=== PATIENT | female | born 1980 | race Caucasian/White ===

== ENCOUNTER 2021-03-05 15:42 | Inpatient (IN) | payer BC ==
--- NOTE | 2021-03-05 16:49 | PCM.HP.2 ---
<Cameron Thorne Cyrus - Last Filed: 03/06/21 09:46> H&P History of Present Illness - General Date of Service: 03/05/21 Admit Problem/Dx: Admission Diagnosis/Problem Admission Diagnosis/Problem Sepsis Source of Information: Patient History Limitations: Reports: No Limitations - History of Present Illness Initial Comments - Free Text/Narative: Sarah Beth Friedman is a 40-year-old female presenting from the [place] ED for sepsis secondary to UTI. She initially presented to the ED with chills, diarrhea, vomiting, lower back and lower abdominal pain, malaise, and decrease in appetite. She reports that she typically goes to the ED when she "does not feel well" and has had prior episodes of UTI but non that have been this painful. The symptoms began on Thursday (03/03) and have gradually worsened until ED presentation. She describes the pain as constant, dull and pressure that is located in her lower back on both sides. This pain radiats to her buttocks when she moves or when touched. She also describes pain in her lower abdomen (suprapubic region) that started around the same time as the lower back pain. She tried cranberry pills for the UTI with little success. She rates the pain a 5-6/10 with the pain continuing worsen. She has no sick contacts, no recent travel, and no new foods. She has a past medical history of Diabetes Mellitus Type 2 and cardiovascular disease that has required multiple stent placements. ED Course in [place]: Last recorded vitals were temperature 36.0C, Pulse 97, Respirations 18, Blood pressure 117/66, and Pulse ox 96% on room air. Labs obtained showing WBC 28.72 (at 0112) and 4.76 (at 0604). Hgb 11.1. Platelets 463. UA with cloudy appearance, 100mg/dL protein, 500mg/dL Glucose, moderate occult blood, Nitrite negative, Leukocyte esterase small, 2+ Bacteria, 50-60 WBC/HPF. Sodium 134. Potassium 4.5. Chloride 98. Carbon Dioxide 21.8. BUN 27. Creatinine 1.5. GFR 38.1. Glucose 291. Lactic Acid 1.7. Albumin 2.8. SARS-CoV-2 RNA is negative. Chest radiograph was obtained which showed findings of an elarged cardiac silhouette and no focal infiltrate with clinical history of sepsis. EKG was obtained and showed findings of sinus tachycardia. She was started on Ceftriaxone 1gm IV onetime push and Ceftriaxone sodium/dextrose 1gm/Premix 50mLs at 100 mLs/hour. Vancomycn HCl 2gm/Premix 400mLs at 200mLs/hour . Enoxaparin 50mg/0.4 CA subcut. Heparin 5000 units/CA vial subcut. Morphine 2mg IV push. She was monitored regularly until transfer was available to [place]. Arrived to [place] around 1500 03/05/2021. Onset of Symptoms: Reports: Gradual Duration of Symptoms: Reports: Day(s): (2) Location: Reports: Abdomen (suprapubic), Back (paraspinal bilateral lumbar region) Quality: Reports: Ache, Pressure Severity: Moderate Improves with: Reports: None Worsens with: Reports: Movement Associated Symptoms: Reports: Diaphoresis, Fever/Chills, Headaches, Loss of Appetite, Malaise, Nausea/Vomiting, Weakness Bilateral Lower Back Pain Score (Numeric/FACES): 5 Suprapubic Pain Score (Numeric/FACES): 5 - Related Data Allergies/Adverse Reactions: Allergies Allergy/AdvReac Type Severity Reaction Status Date / Time Antihistamines - Alkylamine Allergy Hives Verified 03/05/21 17:34 aspirin Allergy Hives Verified 03/05/21 17:34 Home Medications: Home Meds Insulin Aspart [NovoLOG] See Protocol SQ WITHMEALSANDBED #3 pen MDD 50 units 02/13/19 [Rx] Levothyroxine 100 mcg PO ACBREAKFAST 08/18/20 [History] Sertraline HCl [Zoloft] 100 mg PO DAILY 08/18/20 [History] Chlorthalidone 25 mg PO DAILY 03/04/21 [History] Losartan Potassium 100 mg PO 1700 03/04/21 [History] Sertraline [Zoloft] 100 mg PO DAILY 03/04/21 [History] Spironolactone [Aldactone] 25 mg PO BID 03/04/21 [History] Ticagrelor [Brilinta] 90 mg PO BID 03/04/21 [History] amLODIPine [Norvasc] 5 mg PO DAILY 03/04/21 [History] Insulin Degludec [Tresiba] 46 unit SQ BID 03/05/21 [History] Rosuvastatin Calcium 20 mg PO DAILY 03/05/21 [History] Past Medical History HEENT History: Reports: None Cardiovascular History: Reports: High Cholesterol, Stents Respiratory History: Reports: None Gastrointestinal History: Reports: None Genitourinary History: Reports: Diabetic Nephropathy, UTI, Recurrent Other Genitourinary History: Yeast infections [employer] History: Reports: Other OB/BYN History: Genital warts Musculoskeletal History: Reports: None Neurological History: Reports: Neuropathy, Diabetic Psychiatric History: Reports: Anxiety, Depression, PTSD Endocrine/Metabolic History: Reports: Diabetes, Type II, Hypothyroidism Other Endocrine/Metabolic History: does not track sugars at home, takes 40 units Insulin Aspart at meal times, and 46 units Insulin Glargine BID Hematologic History: Reports: None Immunologic History: Reports: None Oncologic (Cancer) History: Reports: None Dermatologic History: Reports: None - Infectious Disease History Infectious Disease History: Reports: Chicken Pox - Past Surgical History Head Surgeries/Procedures: Reports: None HEENT Surgical History: Reports: Tonsillectomy Other HEENT Surgeries/Procedures: 2 throat surgeries Cardiovascular Surgical History: Reports: None Respiratory Surgical History: Reports: None GI Surgical History: Reports: None Female Surgical History: Reports: Section Endocrine Surgical History: Reports: None Neurological Surgical History: Reports: None Musculoskeletal Surgical History: Reports: None Dermatological Surgical History: Reports: None, Other (See Below) (I & D of back infection) Social & Family History - Family History Family Medical History: No Pertinent Family History Respiratory: Reports: COPD (Mother) Endocrine/Metabolic: Reports: Diabetes, type II (Father, Brother, and Paternal Grandfather) Oncologic: Reports: Breast (Mother), Uterine - Tobacco Use Tobacco Use Status *Q: Former Tobacco User Tobacco Use Within Last Twelve Months: No Used Tobacco, but Quit: Yes Month/Year Tobacco Last Used: April 2019 - Tobacco Core Measures Tobacco Use/Smoking Within Last 30 Days: No Smoking Frequency Within Last 30 Days: Reports: None Smokeless Tobacco Use in Last 30 Days: No - Caffeine Use Caffeine Use: Reports: Energy Drinks - Alcohol Use Alcohol Use History: Yes Alcohol Use Frequency: Rarely - Recreational Drug Use Recreational Drug Use: No - Sexual History Sexual History: Reports: Sexually Active - Living Situation & Occupation Occupation: Employed H&P Review of Systems - Review of Systems: Review Of Systems: See Below General: Reports: Fever, Chills, Malaise, Weakness, Fatigue, Diaphoresis, Decreased Appetite HEENT: Reports: Headaches Pulmonary: Reports: No Symptoms Cardiovascular: Reports: Lightheadedness Gastrointestinal: Reports: Abdominal Pain, Anorexia, Decreased Appetite, Nausea, Vomiting (3 episodes) Genitourinary: Reports: Pain (suprapubic), Flank Pain. Denies: Dysuria, Frequency, Burning, Urgency, Incontinence, Hematuria Musculoskeletal: Reports: No Symptoms Skin: Reports: Diaphoresis Psychiatric: Reports: No Symptoms Neurological: Reports: Headache Hematologic/Lymphatic: Reports: Easy Bleeding, Easy Bruising (patient attributes to blood thinner (ticagrelor)) Exam - Exam Exam: See Below - Exam General: Alert, Oriented, Cooperative, Mild Distress HEENT: EOMI, Hearing Intact, Mucosa Moist & Freer, Nares Patent, Pupils Equal, Pupils Reactive Neck: Supple, Trachea Midline, Full Range of Motion. No: Lymphadenopathy, JVD Lungs: Clear to Auscultation, Normal Respiratory Effort Cardiovascular: Regular Rate, Regular Rhythm, Normal S1, Normal S2 GI/Abdominal Exam: Normal Bowel Sounds, Soft, No Organomegaly, No Distention, No Abnormal Bruit (suprapubic pain on palpation), Tender Back Exam: Normal Inspection, CVA Tenderness (L), CVA Tenderness (R), Paraspinal Tenderness Extremities: Normal Inspection, Normal Range of Motion, Non-Tender, No Pedal Edema Peripheral Pulses: 2+: Dorsalis Pedis (L), Dorsalis Pedis (R) Skin: Warm, Dry, Intact, Cool (Bilateral feet) Neurological: Cranial Nerves Intact, Strength Equal Bilateral, Normal Speech, Normal Tone, Other (Decreased sensation of bilateral feet) Neuro Extensive - Mental Status: Alert, Oriented x3, Normal Mood/Affect, Normal Cognition, Memory Intact Neuro Extensive - Motor, Sensory, Reflexes: CN II-XII Intact Psychiatric: Alert, Normal Affect, Normal Mood - Patient Data Result Diagrams: 03/06/21 06:00 03/06/21 06:00 - Problem List (1) Sepsis secondary to UTI SNOMED Code(s): 463728432 ICD Code: A41.9 - SEPSIS, UNSPECIFIED ORGANISM; N39.0 - URINARY TRACT INFECTION, SITE NOT SPECIFIED Status: Acute Priority: High Current Visit: Yes (2) Type 2 diabetes mellitus SNOMED Code(s): 71759664 ICD Code: E11.9 - TYPE 2 DIABETES MELLITUS WITHOUT COMPLICATIONS Status: Chronic Priority: Medium Current Visit: Yes Qualifiers: Diabetes mellitus complication status: with neurologic complications Diabetes mellitus complication detail: with polyneuropathy (3) Depression SNOMED Code(s): 58627193 ICD Code: F32.A - DEPRESSION, UNSPECIFIED Status: Chronic Priority: Low Current Visit: No (4) Hypothyroidism SNOMED Code(s): 87937970 ICD Code: E03.9 - HYPOTHYROIDISM, UNSPECIFIED Status: Chronic Priority: Low Current Visit: No (5) Stented coronary artery Status: Chronic Priority: Low Current Visit: No (6) Diabetic nephropathy Status: Acute Priority: Medium Current Visit: Yes Qualifiers: Diabetes mellitus type: type 2 Qualified Code(s): E11.21 - Type 2 diabetes mellitus with diabetic nephropathy Orders Last 24hrs: Active Orders 24 hr Category Date Time Status Patient Status [ADT] Routine ADT 03/05/21 16:19 Active Blood Glucose Check, Bedside [RC] QIDACANDBED Care 03/05/21 16:30 Active Oxygen Therapy [RC] PRN Care 03/05/21 16:19 Active Up ad Cheri [RC] ASDIRECTED Care 03/05/21 16:19 Active VTE/DVT Education [RC] PER UNIT ROUTINE Care 03/05/21 16:19 Active Vital Signs [RC] Q4H Care 03/05/21 16:19 Active Consistent Carbohydrate Diet [DIET] Diet 03/05/21 Dinner Active Acetaminophen [TylenoL] Med 03/05/21 16:19 Active 650 mg PO Q4H PRN Acetaminophen/HYDROcodone [Chadron 325-5 MG] Med 03/05/21 16:19 Active 1 tab PO Q4H PRN Enoxaparin [Lovenox] Med 03/06/21 09:00 Active 40 mg SUBCUT DAILY Insulin Glarg,Human.Rec.Analog [LantUS] Med 03/05/21 21:00 Active 30 unit SUBCUT BID Insulin Lispro [HumaLOG] Med 03/05/21 17:00 Active See Protocol SUBCUT QIDACANDBED Ondansetron [Zofran] Med 03/05/21 16:19 Active 4 mg IV Q6H PRN Sodium Chloride 0.9% [Normal Saline] 1,000 ml Med 03/05/21 16:30 Active IV ASDIRECTED Temazepam [Restoril] Med 03/05/21 21:00 Active 15 mg PO BEDTIME PRN Resuscitation Status Routine Resus Stat 03/05/21 16:19 Ordered Medication Orders Acetaminophen (Acetaminophen 325 Mg Tab) 650 mg PO Q4H PRN PRN Reason: Pain (Mild 1-3)/fever Hydrocodone Bitart/Acetaminophen (Acetaminophen/Hydrocodone 325-5 Mg Tab) 1 tab PO Q4H PRN PRN Reason: Pain (moderate 4-6) Enoxaparin Sodium (Enoxaparin 40 Mg/0.4 Ml Syringe) 40 mg SUBCUT DAILY [facility] Sodium Chloride (Normal Saline) 1,000 mls @ 125 mls/hr IV ASDIRECTED [facility] Insulin Glargine (Insulin Glarg,Human.Rec.Analog 100 Unit/Ml) 30 unit SUBCUT BI D RODO Insulin Human Lispro (Insulin Lispro 100 Unit/Ml 10 Ml Vial) 0 unit SUBCUT QIDACANDBED RODO; Protocol Ondansetron HCl (Ondansetron 4 Mg/2 Ml Sdv) 4 mg IV Q6H PRN PRN Reason: Nausea/Vomiting Temazepam (Temazepam 15 Mg Cap) 15 mg PO BEDTIME PRN PRN Reason: Sleep Assessment/Plan Comment:: Assessment: -Sarah Beth Friedman is a 40 year-old female who was transferred to the hospital on 03/05/2021for continued signs and symptoms of sepsis secondary to UTI for the past 2 days. -She has had chills, fatigue, malaise, nausea/vomiting, decreased appetite, suprapubic pain, and bilateral CVA tenderness suggestive of UTI. - Urinalysis obtained showed: * cloudy appearance * glucose 500mg/dL * Nitrite negative * leukocyte esterase positive/small * WBC 50-60/hpf * 2+ bacteria * RBC 3-6, moderate occult blood -Labs obtained in ED showing: * WBC at 28.72 and 4.76 * Hgb 10.6 * Platelets 393 * Sodium 134 * Potassium 4.5 * Chloride 98 * Carbon Dioxide 21.8 * BUN 27 * Creatinine 1.5 * Albumin 2.8 * SARS-CoV-2 RNA Negative * Glucose 291 -Chest X-ray showed: * enlarged cardiac silhouette and no infiltrate from clinical sepsis -EKG showed: * sinus tachycardia - She has a past medical history of Diabetes Mellitus which would increase her risk for urinary tract infection, especially if blood glucose levels are not tracked as patient reports. With clinical features of UTI, urinary analysis with suggestive features of UTI, and past history of recurrent UTIs, it is highly likely that the patient is having a repeat UTI. With pain in lower back and diabetes, the UTI is complicated with possible pyelonephritis. Plan: Sepsis secondary to UTI: * Daily labs (CBC, CMP, CRP, lactic acid, UA) * Ceftriazone 2g [id number] * Enoxaparin 40mg/day * Ondansetron 4mg IV Q6H prn for nausea * NS at 125mL/hour * Acetaminophen 650mg p.o Q4H for mild (1-3) pain * [place] 325-5mg p.o Q4H for moderate (4-6) pain Diabetes Mellitus, Type 2: * Start sliding scale insulin with fingerstick blood sugars 4 times daily * Insulin Glargine 30 units BID * Adjust as needed. Stented Coronary Arteries: * No acute concerns based on physical exam and EKG * Continue * ticagrelor 90mg daily * amlodipine 5mg daily Diabetic Nephropathy: * Discontinue Losartan (home medication) * Daily monitoring of kidney function (CMP) Depression: * No acute concerns * Continue home sertraline Hypothyroidism: * No acute concerns * Obtain TSH level and continue levothyroxine as indicated <Leigha Mae III - Last Filed: 03/06/21 09:56> H&P History of Present Illness - General Admit Problem/Dx: Admission Diagnosis/Problem Admission Diagnosis/Problem Sepsis Exam - Vital Signs Vital Signs: Last Vital Signs Temp 101.6 F H 03/06/21 05:09 Pulse 113 H 03/06/21 05:12 Resp 12 03/06/21 05:12 BP 141/76 H 03/06/21 02:44 Pulse Ox 93 L 03/06/21 05:12 - Patient Data Lab Results Last 24 hrs: Laboratory Results - last 24 hr 03/05/21 03/05/21 03/06/21 Range/Units 17:36 20:58 05:47 WBC (3.98-10.04) K/mm3 RBC (3.98-5.22) M/mm3 Hgb (11.2-15.7) gm/dl Hct (34.1-44.9) % MCV (79.4-94.8) fl MCH (25.6-32.2) pg MCHC (32.2-35.5) g/dl RDW Std Deviation (36.4-46.3) fL Plt Count (182-369) K/mm3 MPV (9.4-12.3) fl Neut % (Auto) (34.0-71.1) % Lymph % (Auto) (19.3-51.7) % [place] % (Auto) (4.7-12.5) % Eos % (Auto) (0.7-5.8) Baso % (Auto) (0.1-1.2) % Neut # (Auto) (1.56-6.13) K/mm3 Lymph # (Auto) (1.18-3.74) K/mm3 [place] # (Auto) (0.24-0.36) K/mm3 Eos # (Auto) (0.04-0.36) K/mm3 Baso # (Auto) (0.01-0.08) K/mm3 Sodium (136-145) mEq/L Potassium (3.5-5.1) mEq/L Chloride (98-107) mEq/L Carbon Dioxide (21-32) mEq/L Anion Gap (5-15) BUN (7-18) mg/dL Creatinine (0.55-1.02) mg/dL Est Cr Clr Drug Dosing mL/min Estimated GFR (MDRD) (>60) mL/min BUN/Creatinine Ratio (14-18) Glucose (70-99) mg/dL POC Glucose 282 H 250 H 246 H (70-99) mg/dL Hemoglobin A1c ( - 5.6) % Calcium (8.5-10.1) mg/dL Phosphorus (2.6-4.7) mg/dL Magnesium (1.8-2.4) mg/dL Total Bilirubin (0.2-1.0) mg/dL AST (15-37) U/L ALT (14-59) U/L Alkaline Phosphatase (46-116) U/L C-Reactive Protein (<1.0) mg/dL Total Protein (6.4-8.2) g/dl Albumin (3.4-5.0) g/dl Globulin gm/dL Albumin/Globulin Ratio (1-2) 03/06/21 03/06/21 03/06/21 Range/Units 06:00 06:00 06:00 WBC 19.36 H (3.98-10.04) K/mm3 RBC 4.16 (3.98-5.22) M/mm3 Hgb 9.8 L (11.2-15.7) gm/dl Hct 31.6 L (34.1-44.9) % MCV 76.0 L (79.4-94.8) fl MCH 23.6 L (25.6-32.2) pg MCHC 31.0 L (32.2-35.5) g/dl RDW Std Deviation 52.6 H (36.4-46.3) fL Plt Count 353 (182-369) K/mm3 MPV 9.8 (9.4-12.3) fl Neut % (Auto) 84.7 H (34.0-71.1) % Lymph % (Auto) 8.3 L (19.3-51.7) % [place] % (Auto) 5.9 (4.7-12.5) % Eos % (Auto) 0.1 L (0.7-5.8) Baso % (Auto) 0.2 (0.1-1.2) % Neut # (Auto) 16.42 H (1.56-6.13) K/mm3 Lymph # (Auto) 1.61 (1.18-3.74) K/mm3 [place] # (Auto) 1.14 H (0.24-0.36) K/mm3 Eos # (Auto) 0.01 L (0.04-0.36) K/mm3 Baso # (Auto) 0.03 (0.01-0.08) K/mm3 Sodium 131 L (136-145) mEq/L Potassium 4.1 (3.5-5.1) mEq/L Chloride 100 (98-107) mEq/L Carbon Dioxide 20 L (21-32) mEq/L Anion Gap 15.1 H (5-15) BUN 24 H (7-18) mg/dL Creatinine 1.2 H (0.55-1.02) mg/dL Est Cr Clr Drug Dosing 48.30 mL/min Estimated GFR (MDRD) 49 (>60) mL/min BUN/Creatinine Ratio 20.0 H (14-18) Glucose 257 H (70-99) mg/dL POC Glucose (70-99) mg/dL Hemoglobin A1c 11.8 H ( - 5.6) % Calcium 7.3 L (8.5-10.1) mg/dL Phosphorus 1.5 L (2.6-4.7) mg/dL Magnesium 2.0 (1.8-2.4) mg/dL Total Bilirubin 0.2 (0.2-1.0) mg/dL AST 21 (15-37) U/L ALT 14 (14-59) U/L Alkaline Phosphatase 107 (46-116) U/L C-Reactive Protein 27.3 H* (<1.0) mg/dL Total Protein 6.6 (6.4-8.2) g/dl Albumin 2.0 L (3.4-5.0) g/dl Globulin 4.6 gm/dL Albumin/Globulin Ratio 0.4 L (1-2) 03/06/21 Range/Units 08:29 WBC (3.98-10.04) K/mm3 RBC (3.98-5.22) M/mm3 Hgb (11.2-15.7) gm/dl Hct (34.1-44.9) % MCV (79.4-94.8) fl MCH (25.6-32.2) pg MCHC (32.2-35.5) g/dl RDW Std Deviation (36.4-46.3) fL Plt Count (182-369) K/mm3 MPV (9.4-12.3) fl Neut % (Auto) (34.0-71.1) % Lymph % (Auto) (19.3-51.7) % [place] % (Auto) (4.7-12.5) % Eos % (Auto) (0.7-5.8) Baso % (Auto) (0.1-1.2) % Neut # (Auto) (1.56-6.13) K/mm3 Lymph # (Auto) (1.18-3.74) K/mm3 [place] # (Auto) (0.24-0.36) K/mm3 Eos # (Auto) (0.04-0.36) K/mm3 Baso # (Auto) (0.01-0.08) K/mm3 Sodium (136-145) mEq/L Potassium (3.5-5.1) mEq/L Chloride (98-107) mEq/L Carbon Dioxide (21-32) mEq/L Anion Gap (5-15) BUN (7-18) mg/dL Creatinine (0.55-1.02) mg/dL Est Cr Clr Drug Dosing mL/min Estimated GFR (MDRD) (>60) mL/min BUN/Creatinine Ratio (14-18) Glucose (70-99) mg/dL POC Glucose 216 H (70-99) mg/dL Hemoglobin A1c ( - 5.6) % Calcium (8.5-10.1) mg/dL Phosphorus (2.6-4.7) mg/dL Magnesium (1.8-2.4) mg/dL Total Bilirubin (0.2-1.0) mg/dL AST (15-37) U/L ALT (14-59) U/L Alkaline Phosphatase (46-116) U/L C-Reactive Protein (<1.0) mg/dL Total Protein (6.4-8.2) g/dl Albumin (3.4-5.0) g/dl Globulin gm/dL Albumin/Globulin Ratio (1-2) Result Diagrams: 03/06/21 06:00 03/06/21 06:00 Sepsis Event Note - Focused Exam Vital Signs: Vital Signs Temp Temp Pulse Resp BP Pulse Ox 03/06/21 05:12 113 H 12 93 L 03/06/21 05:09 101.6 F H 03/06/21 05:07 101.7 F H 03/06/21 02:44 141/76 H 03/06/21 02:42 101.5 F H 24 H 03/06/21 02:07 118 H 141/116 H 93 L 03/06/21 00:41 100.2 F 114 H 28 H 119/56 L 92 L Problem List Initiated/Reviewed/Updated: Yes Orders Last 24hrs: Active Orders 24 hr Category Date Time Status Patient Status [ADT] Routine ADT 03/05/21 16:19 Active Blood Glucose Check, Bedside [RC] QIDACANDBED Care 03/05/21 16:30 Active Oxygen Therapy [RC] PRN Care 03/05/21 16:19 Active Up ad Cheri [RC] 09,21 Care 03/05/21 16:19 Active VTE/DVT Education [RC] PER UNIT ROUTINE Care 03/05/21 16:19 Active Vaccine to be Administered/Admin Charge [RC] ASDIRECTED Care 03/05/21 17:18 Active Vital Signs [RC] Q4HR Care 03/05/21 16:19 Active Consistent Carbohydrate Diet [DIET] Diet 03/05/21 Dinner Active Shoulder Comp Lt [CR] Routine Exams 03/06/21 09:11 Ordered PROCALCITONIN [REF] Routine Lab 03/06/21 06:00 Received Acetaminophen [TylenoL] Med 03/05/21 16:19 Active 650 mg PO Q4H PRN Acetaminophen/HYDROcodone [Chadron 325-5 MG] Med 03/05/21 16:19 Active 1 tab PO Q4H PRN Enoxaparin [Lovenox] Med 03/06/21 09:00 Active 40 mg SUBCUT DAILY Insulin Glarg,Human.Rec.Analog [LantUS] Med 03/05/21 21:00 Active 30 unit SUBCUT BID Insulin Lispro [HumaLOG] Med 03/05/21 17:00 Active See Protocol SUBCUT QIDACANDBED Ondansetron [Zofran] Med 03/05/21 16:19 Active 4 mg IV Q6H PRN Sodium Chloride 0.9% [Normal Saline] 1,000 ml Med 03/05/21 16:30 Active IV ASDIRECTED Temazepam [Restoril] Med 03/05/21 21:00 Active 15 mg PO BEDTIME PRN cefTRIAXone [Rocephin] 2 gm Med 03/05/21 21:00 Active Sodium Chloride 0.9% [Normal Saline] 100 ml IV Q24H Resuscitation Status Routine Resus Stat 03/05/21 16:19 Ordered Medication Orders Acetaminophen (Acetaminophen 325 Mg Tab) 650 mg PO Q4H PRN PRN Reason: Pain (Mild 1-3)/fever Last Admin: 03/06/21 05:09 Dose: 650 mg Documented by: [email or web address] Admin: 03/05/21 21:17 Dose: 650 mg Documented by: [id number] Hydrocodone Bitart/Acetaminophen (Acetaminophen/Hydrocodone 325-5 Mg Tab) 1 tab PO Q4H PRN PRN Reason: Pain (moderate 4-6) Last Admin: 03/06/21 08:38 Dose: 1 tab Documented by: Admin: 03/05/21 17:57 Dose: 1 tab Documented by: HUMPHREY Enoxaparin Sodium (Enoxaparin 40 Mg/0.4 Ml Syringe) 40 mg SUBCUT DAILY [facility] Last Admin: 03/06/21 08:33 Dose: 40 mg Documented by: DEMI Sodium Chloride (Normal Saline) 1,000 mls @ 125 mls/hr IV ASDIRECTED [facility] Last Admin: 03/06/21 02:38 Dose: 125 mls/hr Documented by: Infusion: 03/06/21 01:58 Dose: 125 mls/hr Documented by: Admin: 03/05/21 17:58 Dose: 125 mls/hr Documented by: HUMPHREY Ceftriaxone Sodium 2 gm/ (Sodium Chloride) 100 mls @ 200 mls/hr IV Q24H [facility] Last Admin: 03/05/21 21:13 Dose: 200 mls/hr Documented by: ERIK Insulin Glargine (Insulin Glarg,Human.Rec.Analog 100 Unit/Ml) 30 unit SUBCUT BID [facility] Last Admin: 03/06/21 08:33 Dose: 30 units Documented by: Admin: 03/05/21 21:20 Dose: 30 units Documented by: ERIK Insulin Human Lispro (Insulin Lispro 100 Unit/Ml 10 Ml Vial) 0 unit SUBCUT QIDACANDBED [facility]; Protocol Last Admin: 03/06/21 08:32 Dose: 6 units Documented by: Admin: 03/05/21 21:20 Dose: 9 units Documented by: Admin: 03/05/21 18:23 Dose: 9 units Documented by: HUMPHREY Ondansetron HCl (Ondansetron 4 Mg/2 Ml Sdv) 4 mg IV Q6H PRN PRN Reason: Nausea/Vomiting Last Admin: 03/06/21 02:36 Dose: 4 mg Documented by: ERIK Temazepam (Temazepam 15 Mg Cap) 15 mg PO BEDTIME PRN PRN Reason: Sleep Assessment/Plan Comment:: Patient was seen, examined, and evaluated personally and I agree with the above findings, assessment, and plan. - Mortality Measure Prognosis:: Good
[2021-03-05] MEDS ORDERED: FLU Vacc QS2021-22 36MOS UP/PF 60 MCG/0.5 ML Syringe IM ONE (17:45)
[2021-03-05] MEDS: Acetaminophen/HYDROcodone 325-5 MG Tab PO PRN (17:57)
[2021-03-05] MEDS: Sodium Chloride 0.9% 1,000 ML IV SCH (17:58)
[2021-03-05] MEDS: Insulin Lispro 100 UNIT/ML 10 ML Vial SUBCUT SCH ×2 (18:23→21:20)
[2021-03-05] MEDS ORDERED: Temazepam 15 MG Cap PO PRN (21:00)
[2021-03-05] MEDS: cefTRIAXone 2 GM in Sodium Chloride 0.9% 100 ML IV SCH (21:13)
[2021-03-05] MEDS: Acetaminophen 325 MG Tab PO PRN (21:17)
[2021-03-05] MEDS: Insulin Glarg,Human.Rec.Analog 100 Unit/ML SUBCUT SCH (21:20)
[2021-03-06] MEDS: Ondansetron 4 MG/2 ML SDV IV PRN ×2 (02:36→16:09)
[2021-03-06] MEDS: Sodium Chloride 0.9% 1,000 ML IV SCH ×3 (02:38→18:14)
[2021-03-06] MEDS: Acetaminophen 325 MG Tab PO PRN ×2 (05:09→15:55)
[2021-03-06 07:41] LABS: HEMOGLOBIN A1C 11.8 %
[2021-03-06] MEDS: Insulin Lispro 100 UNIT/ML 10 ML Vial SUBCUT SCH ×4 (08:32→22:18)
[2021-03-06] MEDS: Enoxaparin 40 MG/0.4 ML Syringe SUBCUT SCH (08:33)
[2021-03-06] MEDS: Insulin Glarg,Human.Rec.Analog 100 Unit/ML SUBCUT SCH ×2 (08:33→20:30)
[2021-03-06] MEDS: Acetaminophen/HYDROcodone 325-5 MG Tab PO PRN ×3 (08:38→22:19)
[2021-03-06] MEDS: Ticagrelor 90 MG Tab PO SCH ×2 (10:27→20:30)
[2021-03-06] MEDS: amLODIPine 5 MG Tab PO SCH (10:27)
--- NOTE | 2021-03-06 10:27 | CR ---
Left shoulder: 3 views of the left shoulder were obtained. Comparison: No prior shoulder study is available. Small fracture is identified involving the greater tuberosity. This is displaced by about 3.5 mm. Slight calcification appears to be present within the distal rotator cuff presumably due to chronic calcific tendinitis. Acromioclavicular joint is normal. No additional abnormality is appreciated. Impression: 1. Greater tuberosity fracture showing approximately 3.5 mm of displacement. 2. Probable mild chronic calcific tendinitis. 3. No additional abnormality is seen. Diagnostic code #3
--- NOTE | 2021-03-06 13:12 | PCM.PN ---
<Cameron Thorne - Last Filed: 03/06/21 14:31> - General Info Date of Service: 03/06/21 Admission Dx/Problem (Free Text): Admission Diagnosis/Problem Admission Diagnosis/Problem Sepsis Subjective Update: Acute event occurred overnight. Patient was up ambulating and fell. Patient reports severe pain in her left shoulder at an 7/10. She attributes the fall to "not being able to feel her feet" and "my neuropathy." She denies any lightheade dness, dizziness, or loss of consciousness. Event occurred approximately at 0530 03/06/2021. She is currently icing her shoulder for pain and swelling. She reports that besides the shoulder pain, her suprapubic pain has improved. She continues to have bilateral lower back pain but reports that the pain is less severe than yesterday. Patient reports 1 episode of vomiting and continued nausea, but decreased intensity compared to pre-hospitalization. She has been experiencing decreased appetite. She reports no other concerns or complaints. She is tolerating medication plan well. - Review of Systems General: Reports: Fatigue, Malaise. Denies: Appetite (decreased) HEENT: Reports: No Symptoms Pulmonary: Reports: No Symptoms Cardiovascular: Reports: No Symptoms Gastrointestinal: Reports: Abdominal Pain (suprapubic), Decreased Appetite, Nausea, Vomiting (1 episode) Genitourinary: Denies: Dysuria, Frequency, Burning, Pain, Urgency Musculoskeletal: Reports: Back Pain (bilateral lower lumbar region) Skin: Reports: No Symptoms Neurological: Reports: Numbness (bilateral feet and ankles) Psychiatric: Reports: No Symptoms - Patient Data Vitals - Most Recent: Last Vital Signs Temp 98.1 F 03/06/21 11:23 Pulse 96 03/06/21 11:23 Resp 24 H 03/06/21 11:23 BP 120/54 L 03/06/21 11:23 Pulse Ox 94 L 03/06/21 11:23 Weight - Most Recent: 263 lb 9.6 oz I&O - Last 24 Hours: Intake & Output 03/05/21 03/06/21 03/06/21 22:59 06:59 14:59 Intake Total 1280 1535 240 Output Total 225 Balance 1280 1310 240 Lab Results Last 24 Hours: Laboratory Results - last 24 hr 10/12/21 10/12/21 10/13/21 Range/Units 17:36 20:58 05:47 WBC (3.98-10.04) K/mm3 RBC (3.98-5.22) M/mm3 Hgb (11.2-15.7) gm/dl Hct (34.1-44.9) % MCV (79.4-94.8) fl MCH (25.6-32.2) pg MCHC (32.2-35.5) g/dl RDW Std Deviation (36.4-46.3) fL Plt Count (182-369) K/mm3 MPV (9.4-12.3) fl Neut % (Auto) (34.0-71.1) % Lymph % (Auto) (19.3-51.7) % [place] % (Auto) (4.7-12.5) % Eos % (Auto) (0.7-5.8) Baso % (Auto) (0.1-1.2) % Neut # (Auto) (1.56-6.13) K/mm3 Lymph # (Auto) (1.18-3.74) K/mm3 [place] # (Auto) (0.24-0.36) K/mm3 Eos # (Auto) (0.04-0.36) K/mm3 Baso # (Auto) (0.01-0.08) K/mm3 Sodium (136-145) mEq/L Potassium (3.5-5.1) mEq/L Chloride (98-107) mEq/L Carbon Dioxide (21-32) mEq/L Anion Gap (5-15) BUN (7-18) mg/dL Creatinine (0.55-1.02) mg/dL Est Cr Clr Drug Dosing mL/min Estimated GFR (MDRD) (>60) mL/min BUN/Creatinine Ratio (14-18) Glucose (70-99) mg/dL POC Glucose 282 H 250 H 246 H (70-99) mg/dL Hemoglobin A1c ( - 5.6) % Calcium (8.5-10.1) mg/dL Phosphorus (2.6-4.7) mg/dL Magnesium (1.8-2.4) mg/dL Total Bilirubin (0.2-1.0) mg/dL AST (15-37) U/L ALT (14-59) U/L Alkaline Phosphatase (46-116) U/L C-Reactive Protein (<1.0) mg/dL Total Protein (6.4-8.2) g/dl Albumin (3.4-5.0) g/dl Globulin gm/dL Albumin/Globulin Ratio (1-2) Procalcitonin ng/mL 03/06/21 03/06/21 03/06/21 Range/Units 06:00 06:00 06:00 WBC 19.36 H (3.98-10.04) K/mm3 RBC 4.16 (3.98-5.22) M/mm3 Hgb 9.8 L (11.2-15.7) gm/dl Hct 31.6 L (34.1-44.9) % MCV 76.0 L (79.4-94.8) fl MCH 23.6 L (25.6-32.2) pg MCHC 31.0 L (32.2-35.5) g/dl RDW Std Deviation 52.6 H (36.4-46.3) fL Plt Count 353 (182-369) K/mm3 MPV 9.8 (9.4-12.3) fl Neut % (Auto) 84.7 H (34.0-71.1) % Lymph % (Auto) 8.3 L (19.3-51.7) % [place] % (Auto) 5.9 (4.7-12.5) % Eos % (Auto) 0.1 L (0.7-5.8) Baso % (Auto) 0.2 (0.1-1.2) % Neut # (Auto) 16.42 H (1.56-6.13) K/mm3 Lymph # (Auto) 1.61 (1.18-3.74) K/mm3 [place] # (Auto) 1.14 H (0.24-0.36) K/mm3 Eos # (Auto) 0.01 L (0.04-0.36) K/mm3 Baso # (Auto) 0.03 (0.01-0.08) K/mm3 Sodium 131 L (136-145) mEq/L Potassium 4.1 (3.5-5.1) mEq/L Chloride 100 (98-107) mEq/L Carbon Dioxide 20 L (21-32) mEq/L Anion Gap 15.1 H (5-15) BUN 24 H (7-18) mg/dL Creatinine 1.2 H (0.55-1.02) mg/dL Est Cr Clr Drug Dosing 48.30 mL/min Estimated GFR (MDRD) 49 (>60) mL/min BUN/Creatinine Ratio 20.0 H (14-18) Glucose 257 H (70-99) mg/dL POC Glucose (70-99) mg/dL Hemoglobin A1c ( - 5.6) % Calcium 7.3 L (8.5-10.1) mg/dL Phosphorus 1.5 L (2.6-4.7) mg/dL Magnesium 2.0 (1.8-2.4) mg/dL Total Bilirubin 0.2 (0.2-1.0) mg/dL AST 21 (15-37) U/L ALT 14 (14-59) U/L Alkaline Phosphatase 107 (46-116) U/L C-Reactive Protein 27.3 H* (<1.0) mg/dL Total Protein 6.6 (6.4-8.2) g/dl Albumin 2.0 L (3.4-5.0) g/dl Globulin 4.6 gm/dL Albumin/Globulin Ratio 0.4 L (1-2) Procalcitonin 39.93 H ng/mL 03/06/21 03/06/21 03/06/21 Range/Units 06:00 08:29 10:32 WBC (3.98-10.04) K/mm3 RBC (3.98-5.22) M/mm3 Hgb (11.2-15.7) gm/dl Hct (34.1-44.9) % MCV (79.4-94.8) fl MCH (25.6-32.2) pg MCHC (32.2-35.5) g/dl RDW Std Deviation (36.4-46.3) fL Plt Count (182-369) K/mm3 MPV (9.4-12.3) fl Neut % (Auto) (34.0-71.1) % Lymph % (Auto) (19.3-51.7) % [place] % (Auto) (4.7-12.5) % Eos % (Auto) (0.7-5.8) Baso % (Auto) (0.1-1.2) % Neut # (Auto) (1.56-6.13) K/mm3 Lymph # (Auto) (1.18-3.74) K/mm3 [place] # (Auto) (0.24-0.36) K/mm3 Eos # (Auto) (0.04-0.36) K/mm3 Baso # (Auto) (0.01-0.08) K/mm3 Sodium (136-145) mEq/L Potassium (3.5-5.1) mEq/L Chloride (98-107) mEq/L Carbon Dioxide (21-32) mEq/L Anion Gap (5-15) BUN (7-18) mg/dL Creatinine (0.55-1.02) mg/dL Est Cr Clr Drug Dosing mL/min Estimated GFR (MDRD) (>60) mL/min BUN/Creatinine Ratio (14-18) Glucose (70-99) mg/dL POC Glucose 216 H 268 H (70-99) mg/dL Hemoglobin A1c 11.8 H ( - 5.6) % Calcium (8.5-10.1) mg/dL Phosphorus (2.6-4.7) mg/dL Magnesium (1.8-2.4) mg/dL Total Bilirubin (0.2-1.0) mg/dL AST (15-37) U/L ALT (14-59) U/L Alkaline Phosphatase (46-116) U/L C-Reactive Protein (<1.0) mg/dL Total Protein (6.4-8.2) g/dl Albumin (3.4-5.0) g/dl Globulin gm/dL Albumin/Globulin Ratio (1-2) Procalcitonin ng/mL Med Orders - Current: Current Medications Acetaminophen (Acetaminophen 325 Mg Tab) 650 mg PO Q4H PRN PRN Reason: Pain (Mild 1-3)/fever Last Admin: 03/06/21 05:09 Dose: 650 mg Documented by: Hydrocodone Bitart/Acetaminophen (Acetaminophen/Hydrocodone 325-5 Mg Tab) 1 tab PO Q4H PRN PRN Reason: Pain (moderate 4-6) Last Admin: 03/06/21 08:38 Dose: 1 tab Documented by: Amlodipine Besylate (Amlodipine 5 Mg Tab) 5 mg PO DAILY [facility] Last Admin: 03/06/21 10:27 Dose: 5 mg Documented by: Enoxaparin Sodium (Enoxaparin 40 Mg/0.4 Ml Syringe) 40 mg SUBCUT DAILY [facility] Last Admin: 03/06/21 08:33 Dose: 40 mg Documented by: Sodium Chloride (Normal Saline) 1,000 mls @ 125 mls/hr IV ASDIRECTED [facility] Last Admin: 03/06/21 10:29 Dose: 125 mls/hr Documented by: Ceftriaxone Sodium 2 gm/ (Sodium Chloride) 100 mls @ 200 mls/hr IV Q24H [facility] Last Admin: 03/05/21 21:13 Dose: 200 mls/hr Documented by: Insulin Glargine (Insulin Glarg,Human.Rec.Analog 100 Unit/Ml) 30 unit SUBCUT BID [facility] Last Admin: 03/06/21 08:33 Dose: 30 units Documented by: Insulin Human Lispro (Insulin Lispro 100 Unit/Ml 10 Ml Vial) 0 unit SUBCUT QIDACANDBED [facility]; Protocol Last Admin: 03/06/21 11:47 Dose: 9 units Documented by: Levothyroxine Sodium (Levothyroxine 100 Mcg Tab) 100 mcg PO ACBREAKFAST [facility] Ondansetron HCl (Ondansetron 4 Mg/2 Ml Sdv) 4 mg IV Q6H PRN PRN Reason: Nausea/Vomiting Last Admin: 03/06/21 02:36 Dose: 4 mg Documented by: Rosuvastatin Calcium (Rosuvastatin 10 Mg Tab) 20 mg PO DAILY [facility] Sertraline HCl (Sertraline 50 Mg Tab) 100 mg PO DAILY [facility] Temazepam (Temazepam 15 Mg Cap) 15 mg PO BEDTIME PRN PRN Reason: Sleep Ticagrelor (Ticagrelor 90 Mg Tab) 90 mg PO BID [facility] Last Admin: 03/06/21 10:27 Dose: 90 mg Documented by: Discontinued Medications Influenza Virus Vaccine (Pharmacy To Dose - Influenza Vaccine) 1 each IM ONETIME ONE Stop: 03/05/21 17:19 Influenza Virus Vaccine (Flu Vacc [id number] 36mos Up/Pf 60 Mcg/0.5 Ml Syringe) 60 mcg IM .ONCE ONE Stop: 03/05/21 17:46 Last Admin: 03/05/21 22:30 Dose: Not Given Documented by: - Exam General: Alert, Oriented, Cooperative, Mild Distress Neck: Supple Lungs: Clear to Auscultation, Normal Respiratory Effort Cardiovascular: Regular Rhythm, No Murmurs, Tachycardia (~90-110) GI/Abdominal Exam: Normal Bowel Sounds, Soft, No Organomegaly, No Distention, No Abnormal Bruit, No Mass, Tender (to deep palpation in suprabupic region) Back Exam: Normal Inspection, CVA Tenderness (L), CVA Tenderness (R), Decreased Range of Motion (due to pain) Extremities: Normal Inspection, Normal Range of Motion, Non-Tender, No Pedal Edema, Normal Capillary Refill Skin: Warm, Dry, Intact, Cool (bilateral feet) Neurological: No New Focal Deficit Psy/Mental Status: Alert, Normal Affect, Normal Mood - Patient Data Lab Results Last 24 hrs: Laboratory Results - last 24 hr 03/05/21 03/05/21 03/06/21 Range/Units 17:36 20:58 05:47 WBC (3.98-10.04) K/mm3 RBC (3.98-5.22) M/mm3 Hgb (11.2-15.7) gm/dl Hct (34.1-44.9) % MCV (79.4-94.8) fl MCH (25.6-32.2) pg MCHC (32.2-35.5) g/dl RDW Std Deviation (36.4-46.3) fL Plt Count (182-369) K/mm3 MPV (9.4-12.3) fl Neut % (Auto) (34.0-71.1) % Lymph % (Auto) (19.3-51.7) % [place] % (Auto) (4.7-12.5) % Eos % (Auto) (0.7-5.8) Baso % (Auto) (0.1-1.2) % Neut # (Auto) (1.56-6.13) K/mm3 Lymph # (Auto) (1.18-3.74) K/mm3 [place] # (Auto) (0.24-0.36) K/mm3 Eos # (Auto) (0.04-0.36) K/mm3 Baso # (Auto) (0.01-0.08) K/mm3 Sodium (136-145) mEq/L Potassium (3.5-5.1) mEq/L Chloride (98-107) mEq/L Carbon Dioxide (21-32) mEq/L Anion Gap (5-15) BUN (7-18) mg/dL Creatinine (0.55-1.02) mg/dL Est Cr Clr Drug Dosing mL/min Estimated GFR (MDRD) (>60) mL/min BUN/Creatinine Ratio (14-18) Glucose (70-99) mg/dL POC Glucose 282 H 250 H 246 H (70-99) mg/dL Hemoglobin A1c ( - 5.6) % Calcium (8.5-10.1) mg/dL Phosphorus (2.6-4.7) mg/dL Magnesium (1.8-2.4) mg/dL Total Bilirubin (0.2-1.0) mg/dL AST (15-37) U/L ALT (14-59) U/L Alkaline Phosphatase (46-116) U/L C-Reactive Protein (<1.0) mg/dL Total Protein (6.4-8.2) g/dl Albumin (3.4-5.0) g/dl Globulin gm/dL Albumin/Globulin Ratio (1-2) Procalcitonin ng/mL 03/06/21 03/06/21 03/06/21 Range/Units 06:00 06:00 06:00 WBC 19.36 H (3.98-10.04) K/mm3 RBC 4.16 (3.98-5.22) M/mm3 Hgb 9.8 L (11.2-15.7) gm/dl Hct 31.6 L (34.1-44.9) % MCV 76.0 L (79.4-94.8) fl MCH 23.6 L (25.6-32.2) pg MCHC 31.0 L (32.2-35.5) g/dl RDW Std Deviation 52.6 H (36.4-46.3) fL Plt Count 353 (182-369) K/mm3 MPV 9.8 (9.4-12.3) fl Neut % (Auto) 84.7 H (34.0-71.1) % Lymph % (Auto) 8.3 L (19.3-51.7) % [place] % (Auto) 5.9 (4.7-12.5) % Eos % (Auto) 0.1 L (0.7-5.8) Baso % (Auto) 0.2 (0.1-1.2) % Neut # (Auto) 16.42 H (1.56-6.13) K/mm3 Lymph # (Auto) 1.61 (1.18-3.74) K/mm3 [place] # (Auto) 1.14 H (0.24-0.36) K/mm3 Eos # (Auto) 0.01 L (0.04-0.36) K/mm3 Baso # (Auto) 0.03 (0.01-0.08) K/mm3 Sodium 131 L (136-145) mEq/L Potassium 4.1 (3.5-5.1) mEq/L Chloride 100 (98-107) mEq/L Carbon Dioxide 20 L (21-32) mEq/L Anion Gap 15.1 H (5-15) BUN 24 H (7-18) mg/dL Creatinine 1.2 H (0.55-1.02) mg/dL Est Cr Clr Drug Dosing 48.30 mL/min Estimated GFR (MDRD) 49 (>60) mL/min BUN/Creatinine Ratio 20.0 H (14-18) Glucose 257 H (70-99) mg/dL POC Glucose (70-99) mg/dL Hemoglobin A1c ( - 5.6) % Calcium 7.3 L (8.5-10.1) mg/dL Phosphorus 1.5 L (2.6-4.7) mg/dL Magnesium 2.0 (1.8-2.4) mg/dL Total Bilirubin 0.2 (0.2-1.0) mg/dL AST 21 (15-37) U/L ALT 14 (14-59) U/L Alkaline Phosphatase 107 (46-116) U/L C-Reactive Protein 27.3 H* (<1.0) mg/dL Total Protein 6.6 (6.4-8.2) g/dl Albumin 2.0 L (3.4-5.0) g/dl Globulin 4.6 gm/dL Albumin/Globulin Ratio 0.4 L (1-2) Procalcitonin 39.93 H ng/mL 03/06/21 03/06/21 03/06/21 Range/Units 06:00 08:29 10:32 WBC (3.98-10.04) K/mm3 RBC (3.98-5.22) M/mm3 Hgb (11.2-15.7) gm/dl Hct (34.1-44.9) % MCV (79.4-94.8) fl MCH (25.6-32.2) pg MCHC (32.2-35.5) g/dl RDW Std Deviation (36.4-46.3) fL Plt Count (182-369) K/mm3 MPV (9.4-12.3) fl Neut % (Auto) (34.0-71.1) % Lymph % (Auto) (19.3-51.7) % [place] % (Auto) (4.7-12.5) % Eos % (Auto) (0.7-5.8) Baso % (Auto) (0.1-1.2) % Neut # (Auto) (1.56-6.13) K/mm3 Lymph # (Auto) (1.18-3.74) K/mm3 [place] # (Auto) (0.24-0.36) K/mm3 Eos # (Auto) (0.04-0.36) K/mm3 Baso # (Auto) (0.01-0.08) K/mm3 Sodium (136-145) mEq/L Potassium (3.5-5.1) mEq/L Chloride (98-107) mEq/L Carbon Dioxide (21-32) mEq/L Anion Gap (5-15) BUN (7-18) mg/dL Creatinine (0.55-1.02) mg/dL Est Cr Clr Drug Dosing mL/min Estimated GFR (MDRD) (>60) mL/min BUN/Creatinine Ratio (14-18) Glucose (70-99) mg/dL POC Glucose 216 H 268 H (70-99) mg/dL Hemoglobin A1c 11.8 H ( - 5.6) % Calcium (8.5-10.1) mg/dL Phosphorus (2.6-4.7) mg/dL Magnesium (1.8-2.4) mg/dL Total Bilirubin (0.2-1.0) mg/dL AST (15-37) U/L ALT (14-59) U/L Alkaline Phosphatase (46-116) U/L C-Reactive Protein (<1.0) mg/dL Total Protein (6.4-8.2) g/dl Albumin (3.4-5.0) g/dl Globulin gm/dL Albumin/Globulin Ratio (1-2) Procalcitonin ng/mL Result Diagrams: 03/06/21 06:00 03/06/21 06:00 Sepsis Event Note - Evaluation Sepsis Screening Result: Sepsis Risk - Focused Exam Vital Signs: Vital Signs Temp Temp Pulse Resp BP Pulse Ox 03/06/21 11:23 98.1 F 96 24 H 120/54 L 94 L 03/06/21 10:27 106/48 L 03/06/21 08:40 98.1 F 94 16 106/48 L 93 L 03/06/21 07:30 97.6 F 03/06/21 05:12 113 H 12 93 L 03/06/21 05:09 101.6 F H 03/06/21 05:07 101.7 F H 03/06/21 02:44 141/76 H 03/06/21 02:42 101.5 F H 24 H 03/06/21 02:07 118 H 141/116 H 93 L - Problem List & Annotations (1) Sepsis secondary to UTI SNOMED Code(s): 796872660 Code(s): A41.9 - SEPSIS, UNSPECIFIED ORGANISM; N39.0 - URINARY TRACT INFECTION, SITE NOT SPECIFIED Status: Acute Priority: High Current Visit: Yes (2) Type 2 diabetes mellitus SNOMED Code(s): 58507402 Code(s): E11.9 - TYPE 2 DIABETES MELLITUS WITHOUT COMPLICATIONS Status: Chronic Priority: Medium Current Visit: Yes Qualifiers: Diabetes mellitus complication status: with neurologic complications Diabetes mellitus complication detail: with polyneuropathy (3) Depression SNOMED Code(s): 66550077 Code(s): F32.A - DEPRESSION, UNSPECIFIED Status: Chronic Priority: Low Current Visit: No (4) Hypothyroidism SNOMED Code(s): 64337616 Code(s): E03.9 - HYPOTHYROIDISM, UNSPECIFIED Status: Chronic Priority: Low Current Visit: No (5) Stented coronary artery Status: Chronic Priority: Low Current Visit: No (6) Diabetic nephropathy Status: Acute Priority: Medium Current Visit: Yes Qualifiers: Diabetes mellitus type: type 2 Qualified Code(s): E11.21 - Type 2 diabetes mellitus with diabetic nephropathy (7) Fracture, humerus, greater tuberosity SNOMED Code(s): 596554002 Code(s): S42.253A - DISP FX OF GREATER TUBEROSITY OF UNSP HUMERUS, INIT Status: Acute Priority: Medium Current Visit: Yes Onset Date: 03/06/21 Qualifiers: Fracture type: closed Fracture alignment: displaced Laterality: left - Problem List Review Problem List Initiated/Reviewed/Updated: Yes - Assessment Assessment:: Admission Assessment (03/05/2021): -Sarah Beth Friedman is a 40 year-old female who was transferred to the hospital on 03/05/2021for continued signs and symptoms of sepsis secondary to UTI for the past 2 days. -She has had chills, fatigue, malaise, nausea/vomiting, decreased appetite, suprapubic pain, and bilateral CVA tenderness suggestive of UTI. - Urinalysis obtained showed: * cloudy appearance * glucose 500mg/dL * Nitrite negative * leukocyte esterase positive/small * WBC 50-60/hpf * 2+ bacteria * RBC 3-6, moderate occult blood -Labs obtained in ED showing: * WBC at 28.72 and 4.76 * Hgb 10.6 * Platelets 393 * Sodium 134 * Potassium 4.5 * Chloride 98 * Carbon Dioxide 21.8 * BUN 27 * Creatinine 1.5 * Albumin 2.8 * SARS-CoV-2 RNA Negative * Glucose 291 -Chest X-ray showed: * enlarged cardiac silhouette and no infiltrate from clinical sepsis -EKG showed: * sinus tachycardia - She has a past medical history of Diabetes Mellitus which would increase her risk for urinary tract infection, especially if blood glucose levels are not t racked as patient reports. With clinical features of UTI, urinary analysis with suggestive features of UTI, and past history of recurrent UTIs, it is highly likely that the patient is having a repeat UTI. With pain in lower back and diabetes, the UTI is complicated with possible pyelonephritis. Assessment 03/06/2021 Sarah Beth Friedman is a 40-year-old female currently admitted for continued treatment for sepsis secondary to urinary tract infection. She initially was seen on 03/05/2021 in the [place] [facility] and was transferred later that day to [place] for care. Labs obtained today showed the following: WBC of 19.36 (down from 28.72), Hgb 9.8, Platelets 353, Sodium 131, Potassium 4.1, Chloride 100, Carbon Dioxide 20, BUN 24, Creatinine 1.2, Anion Gap 15.1, CRP 27.3, Albumin 2.0 (down from 2.8), and procalcitonin 39.93. Tmax was 101.7 and most recent Temperature was 98.1F, Respirations 24, Pulse 90-110s. Considering clinical features (continued lower back pain, nausea, fever, tachycardia, tachypnea) elevated lab results (WBC, procalcitonin, CRP), and high risk (past history of diabetes mellitus type 2), patient will benefit from continued antibiotic therapy. She has been monitored regularly for her diabetes and glucose levels. Glucose has been recorded between 246-282. Due to her recent fall, X-rays were ordered and showed the following findings: 1. Greater tuberosity fracture showing approximately 3.5 mm of displacement 2. Probable mild chronic calcific tendinitis. Referral to orthopedics will be required. - Plan Plan:: Sepsis secondary to UTI: * Daily labs (CBC, CMP, CRP, lactic acid, UA) * Ceftriazone 2g [id number] * Enoxaparin 40mg/day * Ondansetron 4mg IV Q6H prn for nausea * NS at 125mL/hour * Acetaminophen 650mg p.o Q4H for mild (1-3) pain * Narco 325-5mg p.o Q4H for moderate (4-6) pain Diabetes Mellitus, Type 2: Diabetic Nephropathy: * Start sliding scale insulin with fingerstick blood sugars 4 times daily * Insulin Glargine 30 units BID * Adjust as needed * Hold Losartan (home medication) * Daily monitoring of kidney function (CMP) Stented Coronary Arteries: * No acute concerns based on physical exam and EKG * Continue * Ticagrelor 90mg daily * Amlodipine 5mg daily Depression: * No acute concerns * Continue home sertraline Hypothyroidism: * No acute concerns * TSH to be obtained 03/07/2021 am * Levothyroxine as indicated based on TSH value Greater Tuberosity Fracture of Humerus, Left: * X-ray confirmed * Place patient in a sling * Consult orthopedics * Pain management as ordered <Leigha Mae III - Last Filed: 03/06/21 15:25> - Patient Data Vitals - Most Recent: Last Vital Signs Temp 98.1 F 03/06/21 15:08 Pulse 121 H 03/06/21 15:08 Resp 20 03/06/21 15:08 BP 148/84 H 03/06/21 15:12 Pulse Ox 97 03/06/21 15:08 I&O - Last 24 Hours: Intake & Output 03/06/21 03/06/21 03/06/21 06:59 14:59 22:59 Intake Total 1535 240 Output Total 225 Balance 1310 240 Lab Results Last 24 Hours: Laboratory Results - last 24 hr 03/05/21 03/05/21 03/06/21 Range/Units 17:36 20:58 05:47 WBC (3.98-10.04) K/mm3 RBC (3.98-5.22) M/mm3 Hgb (11.2-15.7) gm/dl Hct (34.1-44.9) % MCV (79.4-94.8) fl MCH (25.6-32.2) pg MCHC (32.2-35.5) g/dl RDW Std Deviation (36.4-46.3) fL Plt Count (182-369) K/mm3 MPV (9.4-12.3) fl Neut % (Auto) (34.0-71.1) % Lymph % (Auto) (19.3-51.7) % [place] % (Auto) (4.7-12.5) % Eos % (Auto) (0.7-5.8) Baso % (Auto) (0.1-1.2) % Neut # (Auto) (1.56-6.13) K/mm3 Lymph # (Auto) (1.18-3.74) K/mm3 [place] # (Auto) (0.24-0.36) K/mm3 Eos # (Auto) (0.04-0.36) K/mm3 Baso # (Auto) (0.01-0.08) K/mm3 Sodium (136-145) mEq/L Potassium (3.5-5.1) mEq/L Chloride (98-107) mEq/L Carbon Dioxide (21-32) mEq/L Anion Gap (5-15) BUN (7-18) mg/dL Creatinine (0.55-1.02) mg/dL Est Cr Clr Drug Dosing mL/min Estimated GFR (MDRD) (>60) mL/min BUN/Creatinine Ratio (14-18) Glucose (70-99) mg/dL POC Glucose 282 H 250 H 246 H (70-99) mg/dL Hemoglobin A1c ( - 5.6) % Calcium (8.5-10.1) mg/dL Phosphorus (2.6-4.7) mg/dL Magnesium (1.8-2.4) mg/dL Total Bilirubin (0.2-1.0) mg/dL AST (15-37) U/L ALT (14-59) U/L Alkaline Phosphatase (46-116) U/L C-Reactive Protein (<1.0) mg/dL Total Protein (6.4-8.2) g/dl Albumin (3.4-5.0) g/dl Globulin gm/dL Albumin/Globulin Ratio (1-2) Procalcitonin ng/mL 03/06/21 03/06/21 03/06/21 Range/Units 06:00 06:00 06:00 WBC 19.36 H (3.98-10.04) K/mm3 RBC 4.16 (3.98-5.22) M/mm3 Hgb 9.8 L (11.2-15.7) gm/dl Hct 31.6 L (34.1-44.9) % MCV 76.0 L (79.4-94.8) fl MCH 23.6 L (25.6-32.2) pg MCHC 31.0 L (32.2-35.5) g/dl RDW Std Deviation 52.6 H (36.4-46.3) fL Plt Count 353 (182-369) K/mm3 MPV 9.8 (9.4-12.3) fl Neut % (Auto) 84.7 H (34.0-71.1) % Lymph % (Auto) 8.3 L (19.3-51.7) % [place] % (Auto) 5.9 (4.7-12.5) % Eos % (Auto) 0.1 L (0.7-5.8) Baso % (Auto) 0.2 (0.1-1.2) % Neut # (Auto) 16.42 H (1.56-6.13) K/mm3 Lymph # (Auto) 1.61 (1.18-3.74) K/mm3 [place] # (Auto) 1.14 H (0.24-0.36) K/mm3 Eos # (Auto) 0.01 L (0.04-0.36) K/mm3 Baso # (Auto) 0.03 (0.01-0.08) K/mm3 Sodium 131 L (136-145) mEq/L Potassium 4.1 (3.5-5.1) mEq/L Chloride 100 (98-107) mEq/L Carbon Dioxide 20 L (21-32) mEq/L Anion Gap 15.1 H (5-15) BUN 24 H (7-18) mg/dL Creatinine 1.2 H (0.55-1.02) mg/dL Est Cr Clr Drug Dosing 48.30 mL/min Estimated GFR (MDRD) 49 (>60) mL/min BUN/Creatinine Ratio 20.0 H (14-18) Glucose 257 H (70-99) mg/dL POC Glucose (70-99) mg/dL Hemoglobin A1c ( - 5.6) % Calcium 7.3 L (8.5-10.1) mg/dL Phosphorus 1.5 L (2.6-4.7) mg/dL Magnesium 2.0 (1.8-2.4) mg/dL Total Bilirubin 0.2 (0.2-1.0) mg/dL AST 21 (15-37) U/L ALT 14 (14-59) U/L Alkaline Phosphatase 107 (46-116) U/L C-Reactive Protein 27.3 H* (<1.0) mg/dL Total Protein 6.6 (6.4-8.2) g/dl Albumin 2.0 L (3.4-5.0) g/dl Globulin 4.6 gm/dL Albumin/Globulin Ratio 0.4 L (1-2) Procalcitonin 39.93 H ng/mL 03/06/21 03/06/21 03/06/21 Range/Units 06:00 08:29 10:32 WBC (3.98-10.04) K/mm3 RBC (3.98-5.22) M/mm3 Hgb (11.2-15.7) gm/dl Hct (34.1-44.9) % MCV (79.4-94.8) fl MCH (25.6-32.2) pg MCHC (32.2-35.5) g/dl RDW Std Deviation (36.4-46.3) fL Plt Count (182-369) K/mm3 MPV (9.4-12.3) fl Neut % (Auto) (34.0-71.1) % Lymph % (Auto) (19.3-51.7) % [place] % (Auto) (4.7-12.5) % Eos % (Auto) (0.7-5.8) Baso % (Auto) (0.1-1.2) % Neut # (Auto) (1.56-6.13) K/mm3 Lymph # (Auto) (1.18-3.74) K/mm3 [place] # (Auto) (0.24-0.36) K/mm3 Eos # (Auto) (0.04-0.36) K/mm3 Baso # (Auto) (0.01-0.08) K/mm3 Sodium (136-145) mEq/L Potassium (3.5-5.1) mEq/L Chloride (98-107) mEq/L Carbon Dioxide (21-32) mEq/L Anion Gap (5-15) BUN (7-18) mg/dL Creatinine (0.55-1.02) mg/dL Est Cr Clr Drug Dosing mL/min Estimated GFR (MDRD) (>60) mL/min BUN/Creatinine Ratio (14-18) Glucose (70-99) mg/dL POC Glucose 216 H 268 H (70-99) mg/dL Hemoglobin A1c 11.8 H ( - 5.6) % Calcium (8.5-10.1) mg/dL Phosphorus (2.6-4.7) mg/dL Magnesium (1.8-2.4) mg/dL Total Bilirubin (0.2-1.0) mg/dL AST (15-37) U/L ALT (14-59) U/L Alkaline Phosphatase (46-116) U/L C-Reactive Protein (<1.0) mg/dL Total Protein (6.4-8.2) g/dl Albumin (3.4-5.0) g/dl Globulin gm/dL Albumin/Globulin Ratio (1-2) Procalcitonin ng/mL Med Orders - Current: Current Medications Acetaminophen (Acetaminophen 325 Mg Tab) 650 mg PO Q4H PRN PRN Reason: Pain (Mild 1-3)/fever Last Admin: 03/06/21 05:09 Dose: 650 mg Documented by: Hydrocodone Bitart/Acetaminophen (Acetaminophen/Hydrocodone 325-5 Mg Tab) 1 tab PO Q4H PRN PRN Reason: Pain (moderate 4-6) Last Admin: 03/06/21 08:38 Dose: 1 tab Documented by: Amlodipine Besylate (Amlodipine 5 Mg Tab) 5 mg PO DAILY [facility] Last Admin: 03/06/21 10:27 Dose: 5 mg Documented by: Enoxaparin Sodium (Enoxaparin 40 Mg/0.4 Ml Syringe) 40 mg SUBCUT DAILY [facility] Last Admin: 03/06/21 08:33 Dose: 40 mg Documented by: Sodium Chloride (Normal Saline) 1,000 mls @ 125 mls/hr IV ASDIRECTED [facility] Last Admin: 03/06/21 10:29 Dose: 125 mls/hr Documented by: Ceftriaxone Sodium 2 gm/ (Sodium Chloride) 100 mls @ 200 mls/hr IV Q24H [facility] Last Admin: 03/05/21 21:13 Dose: 200 mls/hr Documented by: Insulin Glargine (Insulin Glarg,Human.Rec.Analog 100 Unit/Ml) 30 unit SUBCUT BID [facility] Last Admin: 03/06/21 08:33 Dose: 30 units Documented by: Insulin Human Lispro (Insulin Lispro 100 Unit/Ml 10 Ml Vial) 0 unit SUBCUT QIDACANDBED [facility]; Protocol Last Admin: 03/06/21 11:47 Dose: 9 units Documented by: Levothyroxine Sodium (Levothyroxine 100 Mcg Tab) 100 mcg PO ACBREAKFAST [facility] Ondansetron HCl (Ondansetron 4 Mg/2 Ml Sdv) 4 mg IV Q6H PRN PRN Reason: Nausea/Vomiting Last Admin: 03/06/21 02:36 Dose: 4 mg Documented by: Rosuvastatin Calcium (Rosuvastatin 10 Mg Tab) 20 mg PO DAILY [facility] Sertraline HCl (Sertraline 50 Mg Tab) 100 mg PO DAILY [facility] Temazepam (Temazepam 15 Mg Cap) 15 mg PO BEDTIME PRN PRN Reason: Sleep Ticagrelor (Ticagrelor 90 Mg Tab) 90 mg PO BID [facility] Last Admin: 03/06/21 10:27 Dose: 90 mg Documented by: Discontinued Medications Influenza Virus Vaccine (Pharmacy To Dose - Influenza Vaccine) 1 each IM ONETIM E ONE Stop: 03/05/21 17:19 Influenza Virus Vaccine (Flu Vacc [id number] 36mos Up/Pf 60 Mcg/0.5 Ml Syringe) 60 mcg IM .ONCE ONE Stop: 03/05/21 17:46 Last Admin: 03/05/21 22:30 Dose: Not Given Documented by: - Patient Data Lab Results Last 24 hrs: Laboratory Results - last 24 hr 03/05/21 03/05/21 03/06/21 Range/Units 17:36 20:58 05:47 WBC (3.98-10.04) K/mm3 RBC (3.98-5.22) M/mm3 Hgb (11.2-15.7) gm/dl Hct (34.1-44.9) % MCV (79.4-94.8) fl MCH (25.6-32.2) pg MCHC (32.2-35.5) g/dl RDW Std Deviation (36.4-46.3) fL Plt Count (182-369) K/mm3 MPV (9.4-12.3) fl Neut % (Auto) (34.0-71.1) % Lymph % (Auto) (19.3-51.7) % [place] % (Auto) (4.7-12.5) % Eos % (Auto) (0.7-5.8) Baso % (Auto) (0.1-1.2) % Neut # (Auto) (1.56-6.13) K/mm3 Lymph # (Auto) (1.18-3.74) K/mm3 [place] # (Auto) (0.24-0.36) K/mm3 Eos # (Auto) (0.04-0.36) K/mm3 Baso # (Auto) (0.01-0.08) K/mm3 Sodium (136-145) mEq/L Potassium (3.5-5.1) mEq/L Chloride (98-107) mEq/L Carbon Dioxide (21-32) mEq/L Anion Gap (5-15) BUN (7-18) mg/dL Creatinine (0.55-1.02) mg/dL Est Cr Clr Drug Dosing mL/min Estimated GFR (MDRD) (>60) mL/min BUN/Creatinine Ratio (14-18) Glucose (70-99) mg/dL POC Glucose 282 H 250 H 246 H (70-99) mg/dL Hemoglobin A1c ( - 5.6) % Calcium (8.5-10.1) mg/dL Phosphorus (2.6-4.7) mg/dL Magnesium (1.8-2.4) mg/dL Total Bilirubin (0.2-1.0) mg/dL AST (15-37) U/L ALT (14-59) U/L Alkaline Phosphatase (46-116) U/L C-Reactive Protein (<1.0) mg/dL Total Protein (6.4-8.2) g/dl Albumin (3.4-5.0) g/dl Globulin gm/dL Albumin/Globulin Ratio (1-2) Procalcitonin ng/mL 03/06/21 03/06/21 03/06/21 Range/Units 06:00 06:00 06:00 WBC 19.36 H (3.98-10.04) K/mm3 RBC 4.16 (3.98-5.22) M/mm3 Hgb 9.8 L (11.2-15.7) gm/dl Hct 31.6 L (34.1-44.9) % MCV 76.0 L (79.4-94.8) fl MCH 23.6 L (25.6-32.2) pg MCHC 31.0 L (32.2-35.5) g/dl RDW Std Deviation 52.6 H (36.4-46.3) fL Plt Count 353 (182-369) K/mm3 MPV 9.8 (9.4-12.3) fl Neut % (Auto) 84.7 H (34.0-71.1) % Lymph % (Auto) 8.3 L (19.3-51.7) % [place] % (Auto) 5.9 (4.7-12.5) % Eos % (Auto) 0.1 L (0.7-5.8) Baso % (Auto) 0.2 (0.1-1.2) % Neut # (Auto) 16.42 H (1.56-6.13) K/mm3 Lymph # (Auto) 1.61 (1.18-3.74) K/mm3 [place] # (Auto) 1.14 H (0.24-0.36) K/mm3 Eos # (Auto) 0.01 L (0.04-0.36) K/mm3 Baso # (Auto) 0.03 (0.01-0.08) K/mm3 Sodium 131 L (136-145) mEq/L Potassium 4.1 (3.5-5.1) mEq/L Chloride 100 (98-107) mEq/L Carbon Dioxide 20 L (21-32) mEq/L Anion Gap 15.1 H (5-15) BUN 24 H (7-18) mg/dL Creatinine 1.2 H (0.55-1.02) mg/dL Est Cr Clr Drug Dosing 48.30 mL/min Estimated GFR (MDRD) 49 (>60) mL/min BUN/Creatinine Ratio 20.0 H (14-18) Glucose 257 H (70-99) mg/dL POC Glucose (70-99) mg/dL Hemoglobin A1c ( - 5.6) % Calcium 7.3 L (8.5-10.1) mg/dL Phosphorus 1.5 L (2.6-4.7) mg/dL Magnesium 2.0 (1.8-2.4) mg/dL Total Bilirubin 0.2 (0.2-1.0) mg/dL AST 21 (15-37) U/L ALT 14 (14-59) U/L Alkaline Phosphatase 107 (46-116) U/L C-Reactive Protein 27.3 H* (<1.0) mg/dL Total Protein 6.6 (6.4-8.2) g/dl Albumin 2.0 L (3.4-5.0) g/dl Globulin 4.6 gm/dL Albumin/Globulin Ratio 0.4 L (1-2) Procalcitonin 39.93 H ng/mL 03/06/21 03/06/21 03/06/21 Range/Units 06:00 08:29 10:32 WBC (3.98-10.04) K/mm3 RBC (3.98-5.22) M/mm3 Hgb (11.2-15.7) gm/dl Hct (34.1-44.9) % MCV (79.4-94.8) fl MCH (25.6-32.2) pg MCHC (32.2-35.5) g/dl RDW Std Deviation (36.4-46.3) fL Plt Count (182-369) K/mm3 MPV (9.4-12.3) fl Neut % (Auto) (34.0-71.1) % Lymph % (Auto) (19.3-51.7) % [place] % (Auto) (4.7-12.5) % Eos % (Auto) (0.7-5.8) Baso % (Auto) (0.1-1.2) % Neut # (Auto) (1.56-6.13) K/mm3 Lymph # (Auto) (1.18-3.74) K/mm3 [place] # (Auto) (0.24-0.36) K/mm3 Eos # (Auto) (0.04-0.36) K/mm3 Baso # (Auto) (0.01-0.08) K/mm3 Sodium (136-145) mEq/L Potassium (3.5-5.1) mEq/L Chloride (98-107) mEq/L Carbon Dioxide (21-32) mEq/L Anion Gap (5-15) BUN (7-18) mg/dL Creatinine (0.55-1.02) mg/dL Est Cr Clr Drug Dosing mL/min Estimated GFR (MDRD) (>60) mL/min BUN/Creatinine Ratio (14-18) Glucose (70-99) mg/dL POC Glucose 216 H 268 H (70-99) mg/dL Hemoglobin A1c 11.8 H ( - 5.6) % Calcium (8.5-10.1) mg/dL Phosphorus (2.6-4.7) mg/dL Magnesium (1.8-2.4) mg/dL Total Bilirubin (0.2-1.0) mg/dL AST (15-37) U/L ALT (14-59) U/L Alkaline Phosphatase (46-116) U/L C-Reactive Protein (<1.0) mg/dL Total Protein (6.4-8.2) g/dl Albumin (3.4-5.0) g/dl Globulin gm/dL Albumin/Globulin Ratio (1-2) Procalcitonin ng/mL Result Diagrams: 03/06/21 06:00 03/06/21 06:00 Sepsis Event Note - Focused Exam Vital Signs: Vital Signs Temp Temp Pulse Resp BP BP Pulse Ox 03/06/21 15:12 148/84 H 03/06/21 15:08 98.1 F 121 H 20 97 03/06/21 11:23 98.1 F 96 24 H 120/54 L 94 L 03/06/21 10:27 106/48 L 03/06/21 08:40 98.1 F 94 16 106/48 L 93 L 03/06/21 07:30 97.6 F 03/06/21 05:12 113 H 12 93 L 03/06/21 05:09 101.6 F H 03/06/21 05:07 101.7 F H - Problem List Review Problem List Initiated/Reviewed/Updated: Yes - My Orders Last 24 Hours: My Active Orders 03/05/21 16:19 Patient Status [ADT] Routine Oxygen Therapy [RC] PRN Up ad Cheri [RC] VTE/DVT Education [RC] PER UNIT ROUTINE Vital Signs [RC] Q4HR Acetaminophen [TylenoL] 650 mg PO Q4H PRN Acetaminophen/HYDROcodone [[place] 325-5 MG] 1 tab PO Q4H PRN Ondansetron [Zofran] 4 mg IV Q6H PRN Resuscitation Status Routine 03/05/21 16:30 Blood Glucose Check, Bedside [RC] QIDACANDBED Sodium Chloride 0.9% [Normal Saline] 1,000 ml IV ASDIRECTED 03/05/21 Dinner Consistent Carbohydrate Diet [DIET] Insulin Lispro [HumaLOG] See Protocol SUBCUT QIDACANDBED 03/05/21 17:18 Vaccine to be Administered/Admin Charge [RC] ASDIRECTED 03/05/21 21:00 Insulin Glarg,Human.Rec.Analog [LantUS] 30 unit SUBCUT BID Temazepam [Restoril] 15 mg PO BEDTIME PRN cefTRIAXone [Rocephin] 2 gm Sodium Chloride 0.9% [Normal Saline] 100 ml IV Q24H 03/06/21 09:00 Enoxaparin [Lovenox] 40 mg SUBCUT DAILY 03/06/21 09:56 TSH [CHEM] Routine 03/06/21 10:00 Ticagrelor [Brilinta] 90 mg PO BID amLODIPine [Norvasc] 5 mg PO DAILY 03/06/21 14:07 Notify Provider Consults [RC] ASDIRECTED Consult to Physician [CONS] Routine 03/07/21 06:00 Levothyroxine [Synthroid] 100 mcg PO ACBREAKFAST 03/07/21 09:00 Rosuvastatin [Crestor] 20 mg PO DAILY Sertraline [Zoloft] 100 mg PO DAILY - Plan Plan:: Patient was seen, examined, and evaluated personally and I agree with the above findings, assessment, and plan.
[2021-03-06] MEDS: cefTRIAXone 2 GM in Sodium Chloride 0.9% 100 ML IV SCH (20:30)
[2021-03-07] MEDS: Sodium Chloride 0.9% 1,000 ML IV SCH (02:05)
[2021-03-07] MEDS: Acetaminophen/HYDROcodone 325-5 MG Tab PO PRN ×5 (04:01→22:42)
[2021-03-07] MEDS: Acetaminophen 325 MG Tab PO PRN ×4 (04:02→18:22)
[2021-03-07] MEDS: Insulin Lispro 100 UNIT/ML 10 ML Vial SUBCUT SCH ×5 (06:01→21:43)
[2021-03-07] MEDS: Levothyroxine 100 MCG Tab PO SCH (06:52)
[2021-03-07] MEDS: Sertraline 50 MG Tab PO SCH (08:11)
[2021-03-07] MEDS: Rosuvastatin 10 MG Tab PO SCH (08:11)
[2021-03-07] MEDS: Ticagrelor 90 MG Tab PO SCH ×2 (08:13→23:44)
[2021-03-07] MEDS: amLODIPine 5 MG Tab PO SCH (08:13)
[2021-03-07] MEDS: Enoxaparin 40 MG/0.4 ML Syringe SUBCUT SCH (08:14)
[2021-03-07] MEDS: Insulin Glarg,Human.Rec.Analog 100 Unit/ML SUBCUT SCH ×2 (08:14→21:43)
--- NOTE | 2021-03-07 11:52 | PCM.CONS ---
H&P History of Present Illness - General Date of Service: 03/07/21 Admit Problem/Dx: Admission Diagnosis/Problem Admission Diagnosis/Problem Sepsis Source of Information: Patient History Limitations: Reports: No Limitations - History of Present Illness Initial Comments - Free Text/Narative: 40 yo female who was admitted to Hospital for urosepsis. Fell in room landing onto the left side. Complains of left shoulder pain and small abrasion at lateral right lower leg. Pt is left-handed. She is uncertain if she has hx LUE injury. Reports hx "was told I tore a rotator cuff", however, uncertain of side. Bilateral Lower Back Pain Score (Numeric/FACES): 5 Suprapubic Pain Score (Numeric/FACES): 5 - Related Data Allergies/Adverse Reactions: Allergies Allergy/AdvReac Type Severity Reaction Status Date / Time Antihistamines - Alkylamine Allergy Hives Verified 03/05/21 17:34 aspirin Allergy Hives Verified 03/05/21 17:34 Home Medications: Home Meds Insulin Aspart [NovoLOG] See Protocol SQ WITHMEALSANDBED #3 pen MDD 50 units 02/13/19 [Rx] Levothyroxine 100 mcg PO ACBREAKFAST 08/18/20 [History] Sertraline HCl [Zoloft] 100 mg PO DAILY 08/18/20 [History] Chlorthalidone 25 mg PO DAILY 03/04/21 [History] Losartan Potassium 100 mg PO 1700 03/04/21 [History] Sertraline [Zoloft] 100 mg PO DAILY 03/04/21 [History] Spironolactone [Aldactone] 25 mg PO BID 03/04/21 [History] Ticagrelor [Brilinta] 90 mg PO BID 03/04/21 [History] amLODIPine [Norvasc] 5 mg PO DAILY 03/04/21 [History] Insulin Degludec [Tresiba] 46 unit SQ BID 03/05/21 [History] Rosuvastatin Calcium 20 mg PO DAILY 03/05/21 [History] Past Medical History - Past Health History Medical/Surgical History: Denies Medical/Surgical History HEENT History: Reports: None, Other (See Below) Other HEENT History: wear upper dentures Cardiovascular History: Reports: High Cholesterol, Hypertension, ND, Stents Other Cardiovascular History: x5 stents placed Respiratory History: Reports: None Gastrointestinal History: Reports: None Genitourinary History: Reports: Diabetic Nephropathy, UTI, Recurrent Other Genitourinary History: Yeast infections [employer]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 OB/BYN History: Genital warts Musculoskeletal History: Reports: None Neurological History: Reports: Neuropathy, Diabetic Psychiatric History: Reports: Anxiety, Depression, PTSD Endocrine/Metabolic History: Reports: Diabetes, Type II, Hypothyroidism Other Endocrine/Metabolic History: does not track sugars at home, takes 40 units Insulin Aspart at meal times, and 46 units Insulin Glargine BID Hematologic History: Reports: None Immunologic History: Reports: None Oncologic (Cancer) History: Reports: None Dermatologic History: Reports: None - Infectious Disease History Infectious Disease History: Reports: Chicken Pox - Past Surgical History Dermatological Surgical History: Reports: None, Other (See Below) (I & D of back infection) Social & Family History - Family History Family Medical History: No Pertinent Family History Respiratory: Reports: COPD (Mother) Endocrine/Metabolic: Reports: Diabetes, type II (Father, Brother, and Paternal Grandfather) Oncologic: Reports: Breast (Mother), Uterine - Tobacco Use Tobacco Use Status *Q: Former Tobacco User Used Tobacco, but Quit: Yes Month/Year Tobacco Last Used: April 2019 - Caffeine Use Caffeine Use: Reports: Coffee, Energy Drinks, Soda, Tea - Recreational Drug Use Recreational Drug Use: No - Sexual History Sexual History: Reports: Sexually Active - Living Situation & Occupation Occupation: Employed H&P Review of Systems - Review of Systems: Review Of Systems: See Below Free Text/Narrative: See Hospitalist and nursing notes. Exam - Exam Exam: See Below - Vital Signs Vital Signs: Last Vital Signs Temp 99.8 F 03/07/21 04:32 Pulse 112 H 03/07/21 03:38 Resp 18 03/06/21 23:53 BP 122/56 L 03/07/21 08:13 Pulse Ox 90 L 03/07/21 03:38 Weight: 270 lb 11.2 oz - Exam General: Alert, Cooperative, Other (No acute distress.) Extremities: Other (C-spine motion without complaint. Formal left shoulder stoney on not assessed. Left elbow, wrist, hand nontender and gentle motion without complaint. Mod tender ant and lat left shoulder. Mild ST swelling left shoulder. NVS intact BUE. Hip, knee, ankle motion without complaint. NVS intact BLE.) Skin: Other (No eccymosis about left shoulder. Eccymosis left abd consistent with Lovenox injection site. Approx 4 cm superficial, linear abrasion right lateral lower leg. No bleeding or drainage about the area. Min tender. No flu ctuance. No eccymosis, erythema, warmth noted about that area.) Physical Exam Comments:: Roshni's negative BLE. - Patient Data Lab Results Last 24 hrs: Laboratory Results - last 24 hr 03/06/21 03/06/21 03/06/21 Range/Units 06:00 16:59 20:33 WBC (3.98-10.04) K/mm3 RBC (3.98-5.22) M/mm3 Hgb (11.2-15.7) gm/dl Hct (34.1-44.9) % MCV (79.4-94.8) fl MCH (25.6-32.2) pg MCHC (32.2-35.5) g/dl RDW Std Deviation (36.4-46.3) fL Plt Count (182-369) K/mm3 MPV (9.4-12.3) fl Neut % (Auto) (34.0-71.1) % Lymph % (Auto) (19.3-51.7) % [place] % (Auto) (4.7-12.5) % Eos % (Auto) (0.7-5.8) Baso % (Auto) (0.1-1.2) % Neut # (Auto) (1.56-6.13) K/mm3 Lymph # (Auto) (1.18-3.74) K/mm3 [place] # (Auto) (0.24-0.36) K/mm3 Eos # (Auto) (0.04-0.36) K/mm3 Baso # (Auto) (0.01-0.08) K/mm3 Sodium (136-145) mEq/L Potassium (3.5-5.1) mEq/L Chloride (98-107) mEq/L Carbon Dioxide (21-32) mEq/L Anion Gap (5-15) BUN (7-18) mg/dL Creatinine (0.55-1.02) mg/dL Est Cr Clr Drug Dosing mL/min Estimated GFR (MDRD) (>60) mL/min BUN/Creatinine Ratio (14-18) Glucose (70-99) mg/dL POC Glucose 238 H 254 H (70-99) mg/dL Calcium (8.5-10.1) mg/dL Phosphorus (2.6-4.7) mg/dL Magnesium (1.8-2.4) mg/dL Total Bilirubin (0.2-1.0) mg/dL AST (15-37) U/L ALT (14-59) U/L Alkaline Phosphatase (46-116) U/L C-Reactive Protein (<1.0) mg/dL Total Protein (6.4-8.2) g/dl Albumin (3.4-5.0) g/dl Globulin gm/dL Albumin/Globulin Ratio (1-2) Procalcitonin 39.93 H ng/mL TSH 3rd Generation (0.358-3.74) uIU/mL 03/07/21 03/07/21 03/07/21 Range/Units 05:48 05:48 05:48 WBC 14.04 H (3.98-10.04) K/mm3 RBC 3.98 (3.98-5.22) M/mm3 Hgb 9.2 L (11.2-15.7) gm/dl Hct 30.0 L (34.1-44.9) % MCV 75.4 L (79.4-94.8) fl MCH 23.1 L (25.6-32.2) pg MCHC 30.7 L (32.2-35.5) g/dl RDW Std Deviation 51.6 H (36.4-46.3) fL Plt Count 335 (182-369) K/mm3 MPV 9.9 (9.4-12.3) fl Neut % (Auto) 74.1 H (34.0-71.1) % Lymph % (Auto) 14.9 L (19.3-51.7) % [place] % (Auto) 9.8 (4.7-12.5) % Eos % (Auto) 0.1 L (0.7-5.8) Baso % (Auto) 0.2 (0.1-1.2) % Neut # (Auto) 10.42 H (1.56-6.13) K/mm3 Lymph # (Auto) 2.09 (1.18-3.74) K/mm3 [place] # (Auto) 1.37 H (0.24-0.36) K/mm3 Eos # (Auto) 0.01 L (0.04-0.36) K/mm3 Baso # (Auto) 0.03 (0.01-0.08) K/mm3 Sodium 131 L (136-145) mEq/L Potassium 3.9 (3.5-5.1) mEq/L Chloride 101 (98-107) mEq/L Carbon Dioxide 19 L (21-32) mEq/L Anion Gap 14.9 (5-15) BUN 17 (7-18) mg/dL Creatinine 1.0 (0.55-1.02) mg/dL Est Cr Clr Drug Dosing 57.96 mL/min Estimated GFR (MDRD) > 60 (>60) mL/min BUN/Creatinine Ratio 17.0 (14-18) Glucose 200 H (70-99) mg/dL POC Glucose (70-99) mg/dL Calcium 7.8 L (8.5-10.1) mg/dL Phosphorus 1.7 L (2.6-4.7) mg/dL Magnesium 2.1 (1.8-2.4) mg/dL Total Bilirubin 0.1 L (0.2-1.0) mg/dL AST 21 (15-37) U/L ALT 17 (14-59) U/L Alkaline Phosphatase 133 H (46-116) U/L C-Reactive Protein 17.4 H* (<1.0) mg/dL Total Protein 6.5 (6.4-8.2) g/dl Albumin 2.0 L (3.4-5.0) g/dl Globulin 4.5 gm/dL Albumin/Globulin Ratio 0.4 L (1-2) Procalcitonin ng/mL TSH 3rd Generation 4.584 H (0.358-3.74) uIU/mL 03/07/21 03/07/21 Range/Units 05:51 10:27 WBC (3.98-10.04) K/mm3 RBC (3.98-5.22) M/mm3 Hgb (11.2-15.7) gm/dl Hct (34.1-44.9) % MCV (79.4-94.8) fl MCH (25.6-32.2) pg MCHC (32.2-35.5) g/dl RDW Std Deviation (36.4-46.3) fL Plt Count (182-369) K/mm3 MPV (9.4-12.3) fl Neut % (Auto) (34.0-71.1) % Lymph % (Auto) (19.3-51.7) % [place] % (Auto) (4.7-12.5) % Eos % (Auto) (0.7-5.8) Baso % (Auto) (0.1-1.2) % Neut # (Auto) (1.56-6.13) K/mm3 Lymph # (Auto) (1.18-3.74) K/mm3 [place] # (Auto) (0.24-0.36) K/mm3 Eos # (Auto) (0.04-0.36) K/mm3 Baso # (Auto) (0.01-0.08) K/mm3 Sodium (136-145) mEq/L Potassium (3.5-5.1) mEq/L Chloride (98-107) mEq/L Carbon Dioxide (21-32) mEq/L Anion Gap (5-15) BUN (7-18) mg/dL Creatinine (0.55-1.02) mg/dL Est Cr Clr Drug Dosing mL/min Estimated GFR (MDRD) (>60) mL/min BUN/Creatinine Ratio (14-18) Glucose (70-99) mg/dL POC Glucose 149 H 318 H (70-99) mg/dL Calcium (8.5-10.1) mg/dL Phosphorus (2.6-4.7) mg/dL Magnesium (1.8-2.4) mg/dL Total Bilirubin (0.2-1.0) mg/dL AST (15-37) U/L ALT (14-59) U/L Alkaline Phosphatase (46-116) U/L C-Reactive Protein (<1.0) mg/dL Total Protein (6.4-8.2) g/dl Albumin (3.4-5.0) g/dl Globulin gm/dL Albumin/Globulin Ratio (1-2) Procalcitonin ng/mL TSH 3rd Generation (0.358-3.74) uIU/mL Result Diagrams: 03/08/21 09:40 03/08/21 09:40 Sepsis Event Note - Evaluation Sepsis Screening Result: No Definite Risk - Focused Exam Vital Signs: Vital Signs Temp Temp Pulse Resp BP Pulse Ox 03/07/21 08:13 122/56 L 03/07/21 04:32 99.8 F 03/07/21 04:15 99.8 F 03/07/21 04:02 100.8 F H 03/07/21 03:40 100.8 F H 03/07/21 03:38 112 H 154/79 H 90 L 03/06/21 23:53 98.6 F 110 H 18 139/83 95 *Q Meaningful Use (ADM) - VTE *Q VTE Mechanical Contraindications *Q: At Risk for Falls Consult PN Assessment/Plan Procedures: Procedures ASSAY OF C-PEPTIDE (07/27/15) ASSAY OF FREE THYROXINE (08/02/20) ASSAY OF LACTIC ACID (02/11/19) ASSAY OF TROPONIN QUANT (12/03/20) ASSAY OF VANCOMYCIN (02/11/19) ASSAY THYROID STIM HORMONE (08/02/20) BLOOD CULTURE FOR BACTERIA (08/18/20) [place] DNA DIR PROBE (01/29/17) CHORIONIC GONADOTROPIN ASSAY (03/09/19) COMPLETE CBC W/AUTO DIFF WBC (12/03/20) COMPREHEN METABOLIC PANEL (12/03/20) CT ABD & PELV W/CONTRAST (01/24/16) CT ANGIOGRAPHY CHEST (12/03/20) CT PELVIS W/DYE (02/11/19) CULTR BACTERIA EXCEPT BLOOD (02/11/19) CULTURE AEROBIC IDENTIFY (02/11/19) CULTURE OTHR SPECIMN AEROBIC (02/11/19) VITOR SUBQ TISSUE 20 SQ CM/< (02/11/19) DRAINAGE OF SKIN ABSCESS (01/22/18) ELECTROCARDIOGRAM TRACING (12/03/20) EMERGENCY DEPT VISIT (12/03/20) EMERGENCY DEPT VISIT (02/11/19) EMERGENCY DEPT VISIT (01/22/18) EMERGENCY DEPT VISIT (01/24/16) EMERGENCY DEPT VISIT (02/02/15) FIBRIN DEGRADATION QUANT (12/03/20) FREE ASSAY (FT-3) (05/09/19) MARIE VAG DNA DIR PROBE (01/29/17) GLUCOSE BLOOD TEST (02/11/19) GLYCOSYLATED HEMOGLOBIN TEST (08/02/20) HYDRATE IV INFUSION ADD-ON (02/11/19) LIPID PANEL (08/02/20) METABOLIC PANEL TOTAL CA (02/11/19) MICROBE SUSCEPTIBLE MARIAH (02/11/19) MICROSOMAL ANTIBODY EACH (05/09/19) ROUTINE VENIPUNCTURE (12/03/20) SMEAR GRAM STAIN (02/11/19) TEST FOR ACETONE/KETONES (02/11/19) THER/PROPH/DIAG INJ IV PUSH (01/24/16) THER/PROPH/DIAG INJ SC/IM (01/24/16) THER/PROPH/DIAG IV INF ADDON (02/11/19) THER/PROPH/DIAG IV INF INIT (12/03/20) THROMBOPLASTIN TIME PARTIAL (12/03/20) THYROGLOBULIN ANTIBODY (05/09/19) TRICHOMONAS VAGIN DIR PROBE (01/29/17) TX/PRO/DX INJ NEW DRUG ADDON (12/03/20) TX/PROPH/DG ADDL SEQ IV INF (02/11/19) UR ALBUMIN SEMIQUANTITATIVE (01/02/20) URINALYSIS AUTO W/SCOPE (12/03/20) URINE BACTERIA CULTURE (07/26/15) URINE CULTURE/COLONY COUNT (01/02/20) URINE TEST (12/03/20) VITAMIN D 25 HYDROXY (08/02/20) X-RAY EXAM CHEST 2 VIEWS (12/03/20) Problem List Initiated/Reviewed/Updated: Yes My Orders Last 24 Hours: My Active Orders 03/06/21 15:05 Immobilizer [RC] BID 03/06/21 15:06 Communication Order [RC] ASDIRECTED 03/07/21 06:56 Ice Therapy [OM.PC] Routine 03/07/21 06:57 Communication Order [RC] ASDIRECTED 03/07/21 11:45 Shoulder w wo Cont Lt [CT] Routine Plan: Assessment: Left shoulder pain s/p fall. Plain films with left greater tuberosity fx with displacement. Plan: Will obtain CT scan. Further aspects of POC to be developed upon receipt of scan results. [employer] ordered. Pt was placed in a shoulder immobilizer. No use of LUE. Hospitalist service indicates pt may d/c to home tomorrow if continued improvements noted medically. Dr. Peña/Tory Ramesh PA-C
--- NOTE | 2021-03-07 13:04 | PCM.PN ---
- General Info Date of Service: 03/07/21 Subjective Update: No acute events overnight. Sarah Beth reports that she is feeling much better compared to pre-hospitalization. Nausea is still present but no episodes of vomiting overnight. She has little to no suprapubic or lower back pain which is significantly improved since yesterday. Continue to feel feverish and has chills "on and off." She has no other signs of UTI (e.g. dysuria, burning, itching, hematuria). Appetite is low. No concerns with urinating or stooling. Left shoulder pain is still consistent at a 5/10 which worsens with movement and palpation. Orthopedic consult has met with the patient and will work on a plan with her. Functional Status: Reports: Pain Controlled, Tolerating Diet, Ambulating, Urinating - Review of Systems General: Reports: Fever, Chills, Appetite (Decreased) HEENT: Reports: No Symptoms Pulmonary: Reports: No Symptoms Cardiovascular: Reports: Edema (lower extremity) Gastrointestinal: Reports: Decreased Appetite, Nausea Genitourinary: Reports: No Symptoms Musculoskeletal: Reports: No Symptoms Skin: Reports: No Symptoms Neurological: Reports: No Symptoms Psychiatric: Reports: No Symptoms - Patient Data Vitals - Most Recent: Last Vital Signs Temp 99.8 F 03/07/21 04:32 Pulse 112 H 03/07/21 03:38 Resp 18 03/06/21 23:53 BP 122/56 L 03/07/21 08:13 Pulse Ox 90 L 03/07/21 03:38 Weight - Most Recent: 122.787 kg I&O - Last 24 Hours: Intake & Output 03/06/21 03/07/21 03/07/21 22:59 06:59 14:59 Intake Total 1770 2535 Output Total 1450 900 Balance 320 1635 Lab Results Last 24 Hours: Laboratory Results - last 24 hr 03/06/21 03/06/21 03/07/21 Range/Units 16:59 20:33 05:48 WBC (3.98-10.04) K/mm3 RBC (3.98-5.22) M/mm3 Hgb (11.2-15.7) gm/dl Hct (34.1-44.9) % MCV (79.4-94.8) fl MCH (25.6-32.2) pg MCHC (32.2-35.5) g/dl RDW Std Deviation (36.4-46.3) fL Plt Count (182-369) K/mm3 MPV (9.4-12.3) fl Neut % (Auto) (34.0-71.1) % Lymph % (Auto) (19.3-51.7) % Trigg % (Auto) (4.7-12.5) % Eos % (Auto) (0.7-5.8) Baso % (Auto) (0.1-1.2) % Neut # (Auto) (1.56-6.13) K/mm3 Lymph # (Auto) (1.18-3.74) K/mm3 Trigg # (Auto) (0.24-0.36) K/mm3 Eos # (Auto) (0.04-0.36) K/mm3 Baso # (Auto) (0.01-0.08) K/mm3 Sodium (136-145) mEq/L Potassium (3.5-5.1) mEq/L Chloride (98-107) mEq/L Carbon Dioxide (21-32) mEq/L Anion Gap (5-15) BUN (7-18) mg/dL Creatinine (0.55-1.02) mg/dL Est Cr Clr Drug Dosing mL/min Estimated GFR (MDRD) (>60) mL/min BUN/Creatinine Ratio (14-18) Glucose (70-99) mg/dL POC Glucose 238 H 254 H (70-99) mg/dL Calcium (8.5-10.1) mg/dL Phosphorus (2.6-4.7) mg/dL Magnesium (1.8-2.4) mg/dL Total Bilirubin (0.2-1.0) mg/dL AST (15-37) U/L ALT (14-59) U/L Alkaline Phosphatase (46-116) U/L C-Reactive Protein (<1.0) mg/dL Total Protein (6.4-8.2) g/dl Albumin (3.4-5.0) g/dl Globulin gm/dL Albumin/Globulin Ratio (1-2) TSH 3rd Generation 4.584 H (0.358-3.74) uIU/mL 10/14/21 10/14/21 10/14/21 Range/Units 05:48 05:48 05:51 WBC 14.04 H (3.98-10.04) K/mm3 RBC 3.98 (3.98-5.22) M/mm3 Hgb 9.2 L (11.2-15.7) gm/dl Hct 30.0 L (34.1-44.9) % MCV 75.4 L (79.4-94.8) fl MCH 23.1 L (25.6-32.2) pg MCHC 30.7 L (32.2-35.5) g/dl RDW Std Deviation 51.6 H (36.4-46.3) fL Plt Count 335 (182-369) K/mm3 MPV 9.9 (9.4-12.3) fl Neut % (Auto) 74.1 H (34.0-71.1) % Lymph % (Auto) 14.9 L (19.3-51.7) % Trigg % (Auto) 9.8 (4.7-12.5) % Eos % (Auto) 0.1 L (0.7-5.8) Baso % (Auto) 0.2 (0.1-1.2) % Neut # (Auto) 10.42 H (1.56-6.13) K/mm3 Lymph # (Auto) 2.09 (1.18-3.74) K/mm3 Trigg # (Auto) 1.37 H (0.24-0.36) K/mm3 Eos # (Auto) 0.01 L (0.04-0.36) K/mm3 Baso # (Auto) 0.03 (0.01-0.08) K/mm3 Sodium 131 L (136-145) mEq/L Potassium 3.9 (3.5-5.1) mEq/L Chloride 101 (98-107) mEq/L Carbon Dioxide 19 L (21-32) mEq/L Anion Gap 14.9 (5-15) BUN 17 (7-18) mg/dL Creatinine 1.0 (0.55-1.02) mg/dL Est Cr Clr Drug Dosing 57.96 mL/min Estimated GFR (MDRD) > 60 (>60) mL/min BUN/Creatinine Ratio 17.0 (14-18) Glucose 200 H (70-99) mg/dL POC Glucose 149 H (70-99) mg/dL Calcium 7.8 L (8.5-10.1) mg/dL Phosphorus 1.7 L (2.6-4.7) mg/dL Magnesium 2.1 (1.8-2.4) mg/dL Total Bilirubin 0.1 L (0.2-1.0) mg/dL AST 21 (15-37) U/L ALT 17 (14-59) U/L Alkaline Phosphatase 133 H (46-116) U/L C-Reactive Protein 17.4 H* (<1.0) mg/dL Total Protein 6.5 (6.4-8.2) g/dl Albumin 2.0 L (3.4-5.0) g/dl Globulin 4.5 gm/dL Albumin/Globulin Ratio 0.4 L (1-2) TSH 3rd Generation (0.358-3.74) uIU/mL 03/07/21 Range/Units 10:27 WBC (3.98-10.04) K/mm3 RBC (3.98-5.22) M/mm3 Hgb (11.2-15.7) gm/dl Hct (34.1-44.9) % MCV (79.4-94.8) fl MCH (25.6-32.2) pg MCHC (32.2-35.5) g/dl RDW Std Deviation (36.4-46.3) fL Plt Count (182-369) K/mm3 MPV (9.4-12.3) fl Neut % (Auto) (34.0-71.1) % Lymph % (Auto) (19.3-51.7) % Trigg % (Auto) (4.7-12.5) % Eos % (Auto) (0.7-5.8) Baso % (Auto) (0.1-1.2) % Neut # (Auto) (1.56-6.13) K/mm3 Lymph # (Auto) (1.18-3.74) K/mm3 Trigg # (Auto) (0.24-0.36) K/mm3 Eos # (Auto) (0.04-0.36) K/mm3 Baso # (Auto) (0.01-0.08) K/mm3 Sodium (136-145) mEq/L Potassium (3.5-5.1) mEq/L Chloride (98-107) mEq/L Carbon Dioxide (21-32) mEq/L Anion Gap (5-15) BUN (7-18) mg/dL Creatinine (0.55-1.02) mg/dL Est Cr Clr Drug Dosing mL/min Estimated GFR (MDRD) (>60) mL/min BUN/Creatinine Ratio (14-18) Glucose (70-99) mg/dL POC Glucose 318 H (70-99) mg/dL Calcium (8.5-10.1) mg/dL Phosphorus (2.6-4.7) mg/dL Magnesium (1.8-2.4) mg/dL Total Bilirubin (0.2-1.0) mg/dL AST (15-37) U/L ALT (14-59) U/L Alkaline Phosphatase (46-116) U/L C-Reactive Protein (<1.0) mg/dL Total Protein (6.4-8.2) g/dl Albumin (3.4-5.0) g/dl Globulin gm/dL Albumin/Globulin Ratio (1-2) TSH 3rd Generation (0.358-3.74) uIU/mL Med Orders - Current: Current Medications Acetaminophen (Acetaminophen 325 Mg Tab) 650 mg PO Q4H PRN PRN Reason: Pain (Mild 1-3)/fever Last Admin: 03/07/21 08:12 Dose: 650 mg Documented by: Hydrocodone Bitart/Acetaminophen (Acetaminophen/Hydrocodone 325-5 Mg Tab) 1 tab PO Q4H PRN PRN Reason: Pain (moderate 4-6) Last Admin: 03/07/21 08:13 Dose: 1 tab Documented by: Amlodipine Besylate (Amlodipine 5 Mg Tab) 5 mg PO DAILY [facility] Last Admin: 03/07/21 08:13 Dose: 5 mg Documented by: Enoxaparin Sodium (Enoxaparin 40 Mg/0.4 Ml Syringe) 40 mg SUBCUT DAILY [facility] Last Admin: 03/07/21 08:14 Dose: 40 mg Documented by: Ceftriaxone Sodium 2 gm/ (Sodium Chloride) 100 mls @ 200 mls/hr IV Q24H [facility] Last Admin: 03/06/21 20:30 Dose: 200 mls/hr Documented by: Insulin Glargine (Insulin Glarg,Human.Rec.Analog 100 Unit/Ml) 30 unit SUBCUT BID [facility] Last Admin: 03/07/21 08:14 Dose: 30 units Documented by: Insulin Human Lispro (Insulin Lispro 100 Unit/Ml 10 Ml Vial) 0 unit SUBCUT QIDACANDBED [facility]; Protocol Last Admin: 03/07/21 11:36 Dose: 12 units Documented by: Levothyroxine Sodium (Levothyroxine 100 Mcg Tab) 100 mcg PO ACBREAKFAST [facility] Last Admin: 03/07/21 06:52 Dose: 100 mcg Documented by: Ondansetron HCl (Ondansetron 4 Mg/2 Ml Sdv) 4 mg IV Q6H PRN PRN Reason: Nausea/Vomiting Last Admin: 03/06/21 16:09 Dose: 4 mg Documented by: Rosuvastatin Calcium (Rosuvastatin 10 Mg Tab) 20 mg PO DAILY [facility] Last Admin: 03/07/21 08:11 Dose: 20 mg Documented by: Sertraline HCl (Sertraline 50 Mg Tab) 100 mg PO DAILY [facility] Last Admin: 03/07/21 08:11 Dose: 100 mg Documented by: Temazepam (Temazepam 15 Mg Cap) 15 mg PO BEDTIME PRN PRN Reason: Sleep Ticagrelor (Ticagrelor 90 Mg Tab) 90 mg PO BID [facility] Last Admin: 03/07/21 08:13 Dose: 90 mg Documented by: Discontinued Medications Sodium Chloride (Normal Saline) 1,000 mls @ 125 mls/hr IV ASDIRECTED [facility] Last Admin: 03/07/21 02:05 Dose: 125 mls/hr Documented by: Influenza Virus Vaccine (Pharmacy To Dose - Influenza Vaccine) 1 each IM ONETIME ONE Stop: 03/05/21 17:19 Influenza Virus Vaccine (Flu Vacc [id number] 36mos Up/Pf 60 Mcg/0.5 Ml Syringe) 60 mcg IM .ONCE ONE Stop: 03/05/21 17:46 Last Admin: 03/05/21 22:30 Dose: Not Given Documented by: - Exam Quality Assessment: DVT Prophylaxis (Lovenox) General: Alert, Oriented, Cooperative, Mild Distress Neck: Supple Lungs: Clear to Auscultation, Normal Respiratory Effort Cardiovascular: Regular Rhythm, Tachycardia GI/Abdominal Exam: Normal Bowel Sounds, Soft, No Organomegaly, No Distention, No Abnormal Bruit, No Mass, Tender (to deep palpation of suprapubic region) Back Exam: Normal Inspection, Full Range of Motion. No: CVA Tenderness (L), CVA Tenderness (R) Extremities: Normal Range of Motion, Non-Tender, Pedal Edema (1+) Skin: Dry, Intact, Cool (bilateral lower extremities) Neurological: No New Focal Deficit Psy/Mental Status: Alert, Normal Affect, Normal Mood - Patient Data Lab Results Last 24 hrs: Laboratory Results - last 24 hr 03/06/21 03/06/21 03/07/21 Range/Units 16:59 20:33 05:48 WBC (3.98-10.04) K/mm3 RBC (3.98-5.22) M/mm3 Hgb (11.2-15.7) gm/dl Hct (34.1-44.9) % MCV (79.4-94.8) fl MCH (25.6-32.2) pg MCHC (32.2-35.5) g/dl RDW Std Deviation (36.4-46.3) fL Plt Count (182-369) K/mm3 MPV (9.4-12.3) fl Neut % (Auto) (34.0-71.1) % Lymph % (Auto) (19.3-51.7) % Trigg % (Auto) (4.7-12.5) % Eos % (Auto) (0.7-5.8) Baso % (Auto) (0.1-1.2) % Neut # (Auto) (1.56-6.13) K/mm3 Lymph # (Auto) (1.18-3.74) K/mm3 Trigg # (Auto) (0.24-0.36) K/mm3 Eos # (Auto) (0.04-0.36) K/mm3 Baso # (Auto) (0.01-0.08) K/mm3 Sodium (136-145) mEq/L Potassium (3.5-5.1) mEq/L Chloride (98-107) mEq/L Carbon Dioxide (21-32) mEq/L Anion Gap (5-15) BUN (7-18) mg/dL Creatinine (0.55-1.02) mg/dL Est Cr Clr Drug Dosing mL/min Estimated GFR (MDRD) (>60) mL/min BUN/Creatinine Ratio (14-18) Glucose (70-99) mg/dL POC Glucose 238 H 254 H (70-99) mg/dL Calcium (8.5-10.1) mg/dL Phosphorus (2.6-4.7) mg/dL Magnesium (1.8-2.4) mg/dL Total Bilirubin (0.2-1.0) mg/dL AST (15-37) U/L ALT (14-59) U/L Alkaline Phosphatase (46-116) U/L C-Reactive Protein (<1.0) mg/dL Total Protein (6.4-8.2) g/dl Albumin (3.4-5.0) g/dl Globulin gm/dL Albumin/Globulin Ratio (1-2) TSH 3rd Generation 4.584 H (0.358-3.74) uIU/mL 03/07/21 03/07/21 03/07/21 Range/Units 05:48 05:48 05:51 WBC 14.04 H (3.98-10.04) K/mm3 RBC 3.98 (3.98-5.22) M/mm3 Hgb 9.2 L (11.2-15.7) gm/dl Hct 30.0 L (34.1-44.9) % MCV 75.4 L (79.4-94.8) fl MCH 23.1 L (25.6-32.2) pg MCHC 30.7 L (32.2-35.5) g/dl RDW Std Deviation 51.6 H (36.4-46.3) fL Plt Count 335 (182-369) K/mm3 MPV 9.9 (9.4-12.3) fl Neut % (Auto) 74.1 H (34.0-71.1) % Lymph % (Auto) 14.9 L (19.3-51.7) % Trigg % (Auto) 9.8 (4.7-12.5) % Eos % (Auto) 0.1 L (0.7-5.8) Baso % (Auto) 0.2 (0.1-1.2) % Neut # (Auto) 10.42 H (1.56-6.13) K/mm3 Lymph # (Auto) 2.09 (1.18-3.74) K/mm3 Trigg # (Auto) 1.37 H (0.24-0.36) K/mm3 Eos # (Auto) 0.01 L (0.04-0.36) K/mm3 Baso # (Auto) 0.03 (0.01-0.08) K/mm3 Sodium 131 L (136-145) mEq/L Potassium 3.9 (3.5-5.1) mEq/L Chloride 101 (98-107) mEq/L Carbon Dioxide 19 L (21-32) mEq/L Anion Gap 14.9 (5-15) BUN 17 (7-18) mg/dL Creatinine 1.0 (0.55-1.02) mg/dL Est Cr Clr Drug Dosing 57.96 mL/min Estimated GFR (MDRD) > 60 (>60) mL/min BUN/Creatinine Ratio 17.0 (14-18) Glucose 200 H (70-99) mg/dL POC Glucose 149 H (70-99) mg/dL Calcium 7.8 L (8.5-10.1) mg/dL Phosphorus 1.7 L (2.6-4.7) mg/dL Magnesium 2.1 (1.8-2.4) mg/dL Total Bilirubin 0.1 L (0.2-1.0) mg/dL AST 21 (15-37) U/L ALT 17 (14-59) U/L Alkaline Phosphatase 133 H (46-116) U/L C-Reactive Protein 17.4 H* (<1.0) mg/dL Total Protein 6.5 (6.4-8.2) g/dl Albumin 2.0 L (3.4-5.0) g/dl Globulin 4.5 gm/dL Albumin/Globulin Ratio 0.4 L (1-2) TSH 3rd Generation (0.358-3.74) uIU/mL 03/07/21 Range/Units 10:27 WBC (3.98-10.04) K/mm3 RBC (3.98-5.22) M/mm3 Hgb (11.2-15.7) gm/dl Hct (34.1-44.9) % MCV (79.4-94.8) fl MCH (25.6-32.2) pg MCHC (32.2-35.5) g/dl RDW Std Deviation (36.4-46.3) fL Plt Count (182-369) K/mm3 MPV (9.4-12.3) fl Neut % (Auto) (34.0-71.1) % Lymph % (Auto) (19.3-51.7) % Trigg % (Auto) (4.7-12.5) % Eos % (Auto) (0.7-5.8) Baso % (Auto) (0.1-1.2) % Neut # (Auto) (1.56-6.13) K/mm3 Lymph # (Auto) (1.18-3.74) K/mm3 Trigg # (Auto) (0.24-0.36) K/mm3 Eos # (Auto) (0.04-0.36) K/mm3 Baso # (Auto) (0.01-0.08) K/mm3 Sodium (136-145) mEq/L Potassium (3.5-5.1) mEq/L Chloride (98-107) mEq/L Carbon Dioxide (21-32) mEq/L Anion Gap (5-15) BUN (7-18) mg/dL Creatinine (0.55-1.02) mg/dL Est Cr Clr Drug Dosing mL/min Estimated GFR (MDRD) (>60) mL/min BUN/Creatinine Ratio (14-18) Glucose (70-99) mg/dL POC Glucose 318 H (70-99) mg/dL Calcium (8.5-10.1) mg/dL Phosphorus (2.6-4.7) mg/dL Magnesium (1.8-2.4) mg/dL Total Bilirubin (0.2-1.0) mg/dL AST (15-37) U/L ALT (14-59) U/L Alkaline Phosphatase (46-116) U/L C-Reactive Protein (<1.0) mg/dL Total Protein (6.4-8.2) g/dl Albumin (3.4-5.0) g/dl Globulin gm/dL Albumin/Globulin Ratio (1-2) TSH 3rd Generation (0.358-3.74) uIU/mL Result Diagrams: 03/07/21 05:48 03/07/21 05:48 Sepsis Event Note - Evaluation Sepsis Screening Result: Sepsis Risk - Focused Exam Vital Signs: Vital Signs Temp Temp Pulse BP Pulse Ox 03/07/21 08:13 122/56 L 03/07/21 04:32 99.8 F 03/07/21 04:15 99.8 F 03/07/21 04:02 100.8 F H 03/07/21 03:40 100.8 F H 03/07/21 03:38 112 H 154/79 H 90 L - Problem List & Annotations (1) Sepsis secondary to UTI SNOMED Code(s): 207538153 Code(s): A41.9 - SEPSIS, UNSPECIFIED ORGANISM; N39.0 - URINARY TRACT INFECTION, SITE NOT SPECIFIED Status: Acute Priority: High Current Visit: Yes (2) Type 2 diabetes mellitus SNOMED Code(s): 17690620 Code(s): E11.9 - TYPE 2 DIABETES MELLITUS WITHOUT COMPLICATIONS Status: Chronic Priority: Medium Current Visit: Yes Qualifiers: Diabetes mellitus complication status: with neurologic complications Diabetes mellitus complication detail: with polyneuropathy (3) Depression SNOMED Code(s): 71072144 Code(s): F32.A - DEPRESSION, UNSPECIFIED Status: Chronic Priority: Low Current Visit: No (4) Hypothyroidism SNOMED Code(s): 92845327 Code(s): E03.9 - HYPOTHYROIDISM, UNSPECIFIED Status: Chronic Priority: Low Current Visit: No (5) Stented coronary artery Status: Chronic Priority: Low Current Visit: No (6) Diabetic nephropathy Status: Acute Priority: Medium Current Visit: Yes Qualifiers: Diabetes mellitus type: type 2 Qualified Code(s): E11.21 - Type 2 diabetes mellitus with diabetic nephropathy (7) Fracture, humerus, greater tuberosity SNOMED Code(s): 014256480 Code(s): S42.253A - DISP FX OF GREATER TUBEROSITY OF UNSP HUMERUS, INIT Status: Acute Priority: Medium Current Visit: Yes Onset Date: 03/06/21 Qualifiers: Fracture type: closed Fracture alignment: displaced Laterality: left - Problem List Review Problem List Initiated/Reviewed/Updated: Yes - Assessment Assessment:: Admission Assessment (03/05/2021): -Sarah Beth Friedman is a 40 year-old female who was transferred to the hospital on 03/05/2021for continued signs and symptoms of sepsis secondary to UTI for the past 2 days. -She has had chills, fatigue, malaise, nausea/vomiting, decreased appetite, suprapubic pain, and bilateral CVA tenderness suggestive of UTI. - Urinalysis obtained showed: * cloudy appearance * glucose 500mg/dL * Nitrite negative * leukocyte esterase positive/small * WBC 50-60/hpf * 2+ bacteria * RBC 3-6, moderate occult blood -Labs obtained in ED showing: * WBC at 28.72 and 4.76 * Hgb 10.6 * Platelets 393 * Sodium 134 * Potassium 4.5 * Chloride 98 * Carbon Dioxide 21.8 * BUN 27 * Creatinine 1.5 * Albumin 2.8 * SARS-CoV-2 RNA Negative * Glucose 291 -Chest X-ray showed: * enlarged cardiac silhouette and no infiltrate from clinical sepsis -EKG showed: * sinus tachycardia - She has a past medical history of Diabetes Mellitus which would increase her risk for urinary tract infection, especially if blood glucose levels are not t racked as patient reports. With clinical features of UTI, urinary analysis with suggestive features of UTI, and past history of recurrent UTIs, it is highly likely that the patient is having a repeat UTI. With pain in lower back and diabetes, the UTI is complicated with possible pyelonephritis. Assessment 03/06/2021 Sarah Beth Friedman is a 40-year-old female currently admitted for continued treatment for sepsis secondary to urinary tract infection. She initially was seen on 03/05/2021 in the [place] ER and was transferred later that day to [place] for care. Labs obtained today showed the following: WBC of 19.36 (down from 28.72), Hgb 9.8, Platelets 353, Sodium 131, Potassium 4.1, Chloride 100, Carbon Dioxide 20, BUN 24, Creatinine 1.2, Anion Gap 15.1, CRP 27.3, Albumin 2.0 (down from 2.8), and procalcitonin 39.93. Tmax was 101.7 and most recent Temperature was 98.1F, Respirations 24, Pulse 90-110s. Considering clinical features (continued lower back pain, nausea, fever, tachycardia, tachypnea) elevated lab results (WBC, procalcitonin, CRP), and high risk (past history of diabetes mellitus type 2), patient will benefit from continued antibiotic therapy. She has been monitored regularly for her diabetes and glucose levels. Glucose has been recorded between 246-282. Due to her recent fall, X-rays were ordered and showed the following findings: 1. Greater tuberosity fracture showing approximately 3.5 mm of displacement 2. Probable mild chronic calcific tendinitis. Referral to orthopedics will be required. Assessment 03/07/2021 Sarah Beth Friedman is a 40-year-old female currently admitted for continued treatment of sepsis secondary to urinary tract infection. Her condition has steadily improved on her current antibiotic therapy. Labs obtained today showed the following: WBC 14.04 (down from 19.36), Hgb 9.2, Platelets 335, Sodium 131, Potassium 3.9, Chloride 101, Carbon Dioxide 19, BUN 17, Creatinine 1.0. Tmax today was 100.8F and most recent temperature was 99.8F, Respirations 18, Pulse 112. Clinical features of sepsis are still present including, tachycardia, fever, and leukocytosis. Leukocytosis has been steadily improving over the last few days. Temperature is slowly coming down. Tachypnea has resolved. Other signs of urinary tract infection (e.g. CVA tenderness, suprapubic tenderness) have resolved. Due to tachycardia, fever, and leukocytosis continued antibiotic therapy would likely be of benefit. Glucose has been monitored regularly for her diabetes. Glucose has been recorded between 149-318. Kidney function based on BUN and creatinine has improved, likely due to improvement of infection and insulin management. Orthopedics has seen patient for recent left shoulder injury. Further treatment and work-up dependent on recommendation. - Plan Plan:: Sepsis secondary to UTI: * Daily labs (CBC, CMP, CRP, lactic acid, UA) * Ceftriazone 2g [id number] * Enoxaparin 40mg/day * Ondansetron 4mg IV Q6H prn for nausea * Acetaminophen 650mg p.o Q4H for mild (1-3) pain * Narco 325-5mg p.o Q4H for moderate (4-6) pain * Repeat Blood Culture Diabetes Mellitus, Type 2: Diabetic Nephropathy: * Continue sliding scale insulin with fingerstick blood sugars 4 times daily * Insulin Lispro 10 units at meal time * Insulin Glargine 30 units BID * Adjust as needed * Hold Losartan (home medication) * Daily monitoring of kidney function (CMP) Stented Coronary Arteries: * No acute concerns based on physical exam and EKG * Continue * Ticagrelor 90mg daily * Amlodipine 5mg daily Depression: * No acute concerns * Continue home sertraline Hypothyroidism: * No acute concerns * TSH measured 4.584 * Continue home levothyroxine Greater Tuberosity Fracture of Humerus, Left: * Patient to remain in a sling * Awaiting recommendations from orthopedic consult * Pain management as ordered Code Status: Full Code DVT Prophylaxis: Lovenox Disposition: Likely to discharge in 1-2 days
[2021-03-07] MEDS: cefTRIAXone 2 GM in Sodium Chloride 0.9% 100 ML IV SCH (21:43)
[2021-03-08] MEDS: Ondansetron 4 MG/2 ML SDV IV PRN ×2 (02:27→17:07)
[2021-03-08] MEDS: Acetaminophen/HYDROcodone 325-5 MG Tab PO PRN ×3 (05:35→20:41)
[2021-03-08] MEDS: Levothyroxine 100 MCG Tab PO SCH (05:36)
[2021-03-08] MEDS: Acetaminophen 325 MG Tab PO PRN (05:36)
[2021-03-08] MEDS ORDERED: Sodium Chloride 0.9% 1,000 ML ONE (07:41)
[2021-03-08] MEDS: Insulin Glarg,Human.Rec.Analog 100 Unit/ML SUBCUT SCH ×2 (08:03→21:08)
[2021-03-08] MEDS: Insulin Lispro 100 UNIT/ML 10 ML Vial SUBCUT SCH ×7 (08:03→21:08)
[2021-03-08] MEDS: Enoxaparin 40 MG/0.4 ML Syringe SUBCUT SCH (08:04)
[2021-03-08] MEDS: amLODIPine 5 MG Tab PO SCH (08:04)
[2021-03-08] MEDS: Sertraline 50 MG Tab PO SCH (08:04)
[2021-03-08] MEDS: Rosuvastatin 10 MG Tab PO SCH (08:04)
[2021-03-08] MEDS ORDERED: Magnesium Hydroxide 400 MG/5 ML Susp 30 ML Cup PO ONE (08:30)
[2021-03-08] MEDS: Ticagrelor 90 MG Tab PO SCH ×2 (09:03→20:41)
--- NOTE | 2021-03-08 09:10 | CT ---
CT left shoulder Technique: Multiple axial sections through the left shoulder were obtained with reconstructed coronal and sagittal images. Comparison: Prior left shoulder radiographic study of 03/06/21. Findings: Comminuted fracture is seen within the proximal humerus involving mostly the greater tuberosity. Greatest fracture displacement is about 2.6 mm. Several small calcifications are seen which are also slightly displaced. There are calcifications felt to be present within the rotator cuff compatible with prior calcific tendinitis. There is no abnormality seen within the acromioclavicular and glenohumeral joints. Impression: 1. Mildly comminuted fracture involving the greater tuberosity. Minimal displacement as noted above. 2. Findings felt compatible with mild calcific tendinitis. Diagnostic code #3 MTDD
--- NOTE | 2021-03-08 12:55 | PCM.SN.2 ---
- Free Text/Narrative Note: Dr. Peña has reviewed CT left shoulder. Greater tuberosity fx and all measures are less than [address] Peña feels this patient could be treated conservatively at this time. Left shoulder immobilizer and [employer] ordered. Pt is to f/u with orthopedics next week. The patient could schedule in [facility] , where she resides or at the [facility] [place]. ELPIDIO Daniels notified. Time Documentation
--- NOTE | 2021-03-08 20:08 | PCM.PN ---
- General Info Date of Service: 03/08/21 Admission Dx/Problem (Free Text): Admission Diagnosis/Problem Admission Diagnosis/Problem Sepsis Subjective Update: Patient is feeling much better, but still have left arm pain from her fracture. CT of the shoulder was ordered by Ortho It showed a mildly comminuted fracture involving the greater tuberosity with minimal displacement. Patient continues on Rocephin and blood cultures are growing out E. coli. Functional Status: Reports: Pain Controlled - Review of Systems General: Reports: Fatigue HEENT: Reports: No Symptoms Cardiovascular: Reports: No Symptoms Gastrointestinal: Reports: No Symptoms Genitourinary: Reports: No Symptoms - Patient Data Vitals - Most Recent: Last Vital Signs Temp 98.4 F 03/08/21 17:05 Pulse 93 03/08/21 17:05 Resp 18 03/08/21 12:43 BP 143/97 H 03/08/21 17:05 Pulse Ox 95 03/08/21 17:05 Weight - Most Recent: 264 lb 4.8 oz I&O - Last 24 Hours: Intake & Output 03/08/21 03/08/21 03/08/21 06:59 14:59 22:59 Intake Total 550 180 400 Output Total 1000 450 Balance -450 180 -50 Lab Results Last 24 Hours: Laboratory Results - last 24 hr 03/07/21 03/08/21 03/08/21 Range/Units 21:27 07:27 09:40 WBC 12.93 H (3.98-10.04) K/mm3 RBC 4.00 (3.98-5.22) M/mm3 Hgb 9.4 L (11.2-15.7) gm/dl Hct 30.2 L (34.1-44.9) % MCV 75.5 L (79.4-94.8) fl MCH 23.5 L (25.6-32.2) pg MCHC 31.1 L (32.2-35.5) g/dl RDW Std Deviation 51.6 H (36.4-46.3) fL Plt Count 361 (182-369) K/mm3 MPV 10.2 (9.4-12.3) fl Neut % (Auto) 66.0 (34.0-71.1) % Lymph % (Auto) 21.6 (19.3-51.7) % [place] % (Auto) 10.3 (4.7-12.5) % Eos % (Auto) 0.1 L (0.7-5.8) Baso % (Auto) 0.3 (0.1-1.2) % Neut # (Auto) 8.54 H (1.56-6.13) K/mm3 Lymph # (Auto) 2.79 (1.18-3.74) K/mm3 [place] # (Auto) 1.33 H (0.24-0.36) K/mm3 Eos # (Auto) 0.01 L (0.04-0.36) K/mm3 Baso # (Auto) 0.04 (0.01-0.08) K/mm3 Sodium (136-145) mEq/L Potassium (3.5-5.1) mEq/L Chloride (98-107) mEq/L Carbon Dioxide (21-32) mEq/L Anion Gap (5-15) BUN (7-18) mg/dL Creatinine (0.55-1.02) mg/dL Est Cr Clr Drug Dosing mL/min Estimated GFR (MDRD) (>60) mL/min BUN/Creatinine Ratio (14-18) Glucose (70-99) mg/dL POC Glucose 199 H 180 H (70-99) mg/dL Calcium (8.5-10.1) mg/dL Total Bilirubin (0.2-1.0) mg/dL AST (15-37) U/L ALT (14-59) U/L Alkaline Phosphatase (46-116) U/L C-Reactive Protein (<1.0) mg/dL Total Protein (6.4-8.2) g/dl Albumin (3.4-5.0) g/dl Globulin gm/dL Albumin/Globulin Ratio (1-2) 03/08/21 03/08/21 03/08/21 Range/Units 09:40 11:28 16:52 WBC (3.98-10.04) K/mm3 RBC (3.98-5.22) M/mm3 Hgb (11.2-15.7) gm/dl Hct (34.1-44.9) % MCV (79.4-94.8) fl MCH (25.6-32.2) pg MCHC (32.2-35.5) g/dl RDW Std Deviation (36.4-46.3) fL Plt Count (182-369) K/mm3 MPV (9.4-12.3) fl Neut % (Auto) (34.0-71.1) % Lymph % (Auto) (19.3-51.7) % [place] % (Auto) (4.7-12.5) % Eos % (Auto) (0.7-5.8) Baso % (Auto) (0.1-1.2) % Neut # (Auto) (1.56-6.13) K/mm3 Lymph # (Auto) (1.18-3.74) K/mm3 [place] # (Auto) (0.24-0.36) K/mm3 Eos # (Auto) (0.04-0.36) K/mm3 Baso # (Auto) (0.01-0.08) K/mm3 Sodium 133 L (136-145) mEq/L Potassium 3.9 (3.5-5.1) mEq/L Chloride 101 (98-107) mEq/L Carbon Dioxide 24 (21-32) mEq/L Anion Gap 11.9 (5-15) BUN 16 (7-18) mg/dL Creatinine 0.9 (0.55-1.02) mg/dL Est Cr Clr Drug Dosing 64.40 mL/min Estimated GFR (MDRD) > 60 (>60) mL/min BUN/Creatinine Ratio 17.8 (14-18) Glucose 318 H (70-99) mg/dL POC Glucose 287 H 149 H (70-99) mg/dL Calcium 8.2 L (8.5-10.1) mg/dL Total Bilirubin 0.1 L (0.2-1.0) mg/dL AST 13 L (15-37) U/L ALT 19 (14-59) U/L Alkaline Phosphatase 139 H (46-116) U/L C-Reactive Protein 9.9 H* (<1.0) mg/dL Total Protein 6.5 (6.4-8.2) g/dl Albumin 2.0 L (3.4-5.0) g/dl Globulin 4.5 gm/dL Albumin/Globulin Ratio 0.4 L (1-2) Med Orders - Current: Current Medications Acetaminophen (Acetaminophen 325 Mg Tab) 650 mg PO Q4H PRN PRN Reason: Pain (Mild 1-3)/fever Last Admin: 03/08/21 05:36 Dose: 650 mg Documented by: Hydrocodone Bitart/Acetaminophen (Acetaminophen/Hydrocodone 325-5 Mg Tab) 1 tab PO Q4H PRN PRN Reason: Pain (moderate 4-6) Last Admin: 03/08/21 14:56 Dose: 1 tab Documented by: Amlodipine Besylate (Amlodipine 5 Mg Tab) 5 mg PO DAILY [facility] Last Admin: 03/08/21 08:04 Dose: 5 mg Documented by: Enoxaparin Sodium (Enoxaparin 40 Mg/0.4 Ml Syringe) 40 mg SUBCUT DAILY [facility] Last Admin: 03/08/21 08:04 Dose: 40 mg Documented by: Ceftriaxone Sodium 2 gm/ (Sodium Chloride) 100 mls @ 200 mls/hr IV Q24H [facility] Last Admin: 03/07/21 21:43 Dose: 200 mls/hr Documented by: Insulin Glargine (Insulin Glarg,Human.Rec.Analog 100 Unit/Ml) 30 unit SUBCUT BID [facility] Last Admin: 03/08/21 08:03 Dose: 30 units Documented by: Insulin Human Lispro (Insulin Lispro 100 Unit/Ml 10 Ml Vial) 0 unit SUBCUT QIDACANDBED [facility]; Protocol Last Admin: 03/08/21 17:27 Dose: Not Given Documented by: Insulin Human Lispro (Insulin Lispro 100 Unit/Ml 10 Ml Vial) 10 unit SUBCUT TIDAC [facility] Last Admin: 03/08/21 17:05 Dose: 10 units Documented by: Levothyroxine Sodium (Levothyroxine 100 Mcg Tab) 100 mcg PO ACBREAKFAST [facility] Last Admin: 03/08/21 05:36 Dose: 100 mcg Documented by: Ondansetron HCl (Ondansetron 4 Mg/2 Ml Sdv) 4 mg IV Q6H PRN PRN Reason: Nausea/Vomiting Last Admin: 03/08/21 17:07 Dose: 4 mg Documented by: Rosuvastatin Calcium (Rosuvastatin 10 Mg Tab) 20 mg PO DAILY [facility] Last Admin: 03/08/21 08:04 Dose: 20 mg Documented by: Sertraline HCl (Sertraline 50 Mg Tab) 100 mg PO DAILY [facility] Last Admin: 03/08/21 08:04 Dose: 100 mg Documented by: Temazepam (Temazepam 15 Mg Cap) 15 mg PO BEDTIME PRN PRN Reason: Sleep Ticagrelor (Ticagrelor 90 Mg Tab) 90 mg PO BID [facility] Last Admin: 03/08/21 09:03 Dose: 90 mg Documented by: Discontinued Medications Sodium Chloride (Normal Saline) 1,000 mls @ 125 mls/hr IV ASDIRECTED [facility] Last Admin: 03/07/21 02:05 Dose: 125 mls/hr Documented by: Sodium Chloride (Normal Saline) Confirm Administered Dose 1,000 mls @ as directe d .ROUTE .STK-MED ONE Stop: 03/08/21 07:42 Last Admin: 03/08/21 09:07 Dose: Not Given Documented by: Influenza Virus Vaccine (Pharmacy To Dose - Influenza Vaccine) 1 each IM ONETIME ONE Stop: 03/05/21 17:19 Influenza Virus Vaccine (Flu Vacc [id number] 36mos Up/Pf 60 Mcg/0.5 Ml Syringe) 60 mcg IM .ONCE ONE Stop: 03/05/21 17:46 Last Admin: 03/05/21 22:30 Dose: Not Given Documented by: Magnesium Hydroxide (Magnesium Hydroxide 400 Mg/5 Ml Susp 30 Ml Cup) 30 ml PO ONETIME ONE Stop: 03/08/21 08:31 Last Admin: 03/08/21 09:03 Dose: 30 ml Documented by: - Exam Quality Assessment: No: Supplemental Oxygen General: Alert, Oriented HEENT: Pupils Equal, Mucous Membr. Moist/[place] Neck: Supple Lungs: Clear to Auscultation, Normal Respiratory Effort Cardiovascular: Regular Rate, Regular Rhythm GI/Abdominal Exam: Normal Bowel Sounds, Soft, Non-Tender, No Distention Extremities: Normal Inspection, No Pedal Edema Skin: Warm, Dry, Intact Psy/Mental Status: Alert, Normal Affect, Normal Mood - Patient Data Lab Results Last 24 hrs: Laboratory Results - last 24 hr 03/07/21 03/08/21 03/08/21 Range/Units 21:27 07:27 09:40 WBC 12.93 H (3.98-10.04) K/mm3 RBC 4.00 (3.98-5.22) M/mm3 Hgb 9.4 L (11.2-15.7) gm/dl Hct 30.2 L (34.1-44.9) % MCV 75.5 L (79.4-94.8) fl MCH 23.5 L (25.6-32.2) pg MCHC 31.1 L (32.2-35.5) g/dl RDW Std Deviation 51.6 H (36.4-46.3) fL Plt Count 361 (182-369) K/mm3 MPV 10.2 (9.4-12.3) fl Neut % (Auto) 66.0 (34.0-71.1) % Lymph % (Auto) 21.6 (19.3-51.7) % [place] % (Auto) 10.3 (4.7-12.5) % Eos % (Auto) 0.1 L (0.7-5.8) Baso % (Auto) 0.3 (0.1-1.2) % Neut # (Auto) 8.54 H (1.56-6.13) K/mm3 Lymph # (Auto) 2.79 (1.18-3.74) K/mm3 [place] # (Auto) 1.33 H (0.24-0.36) K/mm3 Eos # (Auto) 0.01 L (0.04-0.36) K/mm3 Baso # (Auto) 0.04 (0.01-0.08) K/mm3 Sodium (136-145) mEq/L Potassium (3.5-5.1) mEq/L Chloride (98-107) mEq/L Carbon Dioxide (21-32) mEq/L Anion Gap (5-15) BUN (7-18) mg/dL Creatinine (0.55-1.02) mg/dL Est Cr Clr Drug Dosing mL/min Estimated GFR (MDRD) (>60) mL/min BUN/Creatinine Ratio (14-18) Glucose (70-99) mg/dL POC Glucose 199 H 180 H (70-99) mg/dL Calcium (8.5-10.1) mg/dL Total Bilirubin (0.2-1.0) mg/dL AST (15-37) U/L ALT (14-59) U/L Alkaline Phosphatase (46-116) U/L C-Reactive Protein (<1.0) mg/dL Total Protein (6.4-8.2) g/dl Albumin (3.4-5.0) g/dl Globulin gm/dL Albumin/Globulin Ratio (1-2) 03/08/21 03/08/21 03/08/21 Range/Units 09:40 11:28 16:52 WBC (3.98-10.04) K/mm3 RBC (3.98-5.22) M/mm3 Hgb (11.2-15.7) gm/dl Hct (34.1-44.9) % MCV (79.4-94.8) fl MCH (25.6-32.2) pg MCHC (32.2-35.5) g/dl RDW Std Deviation (36.4-46.3) fL Plt Count (182-369) K/mm3 MPV (9.4-12.3) fl Neut % (Auto) (34.0-71.1) % Lymph % (Auto) (19.3-51.7) % [place] % (Auto) (4.7-12.5) % Eos % (Auto) (0.7-5.8) Baso % (Auto) (0.1-1.2) % Neut # (Auto) (1.56-6.13) K/mm3 Lymph # (Auto) (1.18-3.74) K/mm3 [place] # (Auto) (0.24-0.36) K/mm3 Eos # (Auto) (0.04-0.36) K/mm3 Baso # (Auto) (0.01-0.08) K/mm3 Sodium 133 L (136-145) mEq/L Potassium 3.9 (3.5-5.1) mEq/L Chloride 101 (98-107) mEq/L Carbon Dioxide 24 (21-32) mEq/L Anion Gap 11.9 (5-15) BUN 16 (7-18) mg/dL Creatinine 0.9 (0.55-1.02) mg/dL Est Cr Clr Drug Dosing 64.40 mL/min Estimated GFR (MDRD) > 60 (>60) mL/min BUN/Creatinine Ratio 17.8 (14-18) Glucose 318 H (70-99) mg/dL POC Glucose 287 H 149 H (70-99) mg/dL Calcium 8.2 L (8.5-10.1) mg/dL Total Bilirubin 0.1 L (0.2-1.0) mg/dL AST 13 L (15-37) U/L ALT 19 (14-59) U/L Alkaline Phosphatase 139 H (46-116) U/L C-Reactive Protein 9.9 H* (<1.0) mg/dL Total Protein 6.5 (6.4-8.2) g/dl Albumin 2.0 L (3.4-5.0) g/dl Globulin 4.5 gm/dL Albumin/Globulin Ratio 0.4 L (1-2) Result Diagrams: 03/08/21 09:40 03/08/21 09:40 Sepsis Event Note - Evaluation Sepsis Screening Result: No Definite Risk - Focused Exam Vital Signs: Vital Signs Temp Pulse Resp BP Pulse Ox 03/08/21 17:05 98.4 F 93 143/97 H 95 03/08/21 12:43 97.7 F 92 18 149/67 H 96 03/08/21 08:04 146/95 H - Problem List & Annotations (1) Fracture, humerus, greater tuberosity SNOMED Code(s): 800114685 Code(s): S42.253A - DISP FX OF GREATER TUBEROSITY OF UNSP HUMERUS, INIT Status: Acute Priority: Medium Current Visit: Yes Onset Date: 03/06/21 Qualifiers: Fracture type: closed Fracture alignment: displaced Laterality: left (2) Sepsis secondary to UTI SNOMED Code(s): 590149265 Code(s): A41.9 - SEPSIS, UNSPECIFIED ORGANISM; N39.0 - URINARY TRACT INFECTION, SITE NOT SPECIFIED Status: Acute Priority: High Current Visit: Yes (3) Type 2 diabetes mellitus SNOMED Code(s): 77740458 Code(s): E11.9 - TYPE 2 DIABETES MELLITUS WITHOUT COMPLICATIONS Status: Chronic Priority: Medium Current Visit: Yes Qualifiers: Diabetes mellitus complication status: with neurologic complications Diabetes mellitus complication detail: with polyneuropathy - Problem List Review Problem List Initiated/Reviewed/Updated: Yes - Assessment Assessment:: Admission Assessment (03/05/2021): -Sarah Beth Friedman is a 40 year-old female who was transferred to the hospital on 03/05/2021for continued signs and symptoms of sepsis secondary to UTI for the past 2 days. -She has had chills, fatigue, malaise, nausea/vomiting, decreased appetite, suprapubic pain, and bilateral CVA tenderness suggestive of UTI. - Urinalysis obtained showed: * cloudy appearance * glucose 500mg/dL * Nitrite negative * leukocyte esterase positive/small * WBC 50-60/hpf * 2+ bacteria * RBC 3-6, moderate occult blood -Labs obtained in ED showing: * WBC at 28.72 and 4.76 * Hgb 10.6 * Platelets 393 * Sodium 134 * Potassium 4.5 * Chloride 98 * Carbon Dioxide 21.8 * BUN 27 * Creatinine 1.5 * Albumin 2.8 * SARS-CoV-2 RNA Negative * Glucose 291 -Chest X-ray showed: * enlarged cardiac silhouette and no infiltrate from clinical sepsis -EKG showed: * sinus tachycardia - She has a past medical history of Diabetes Mellitus which would increase her risk for urinary tract infection, especially if blood glucose levels are not tracked as patient reports. With clinical features of UTI, urinary analysis with suggestive features of UTI, and past history of recurrent UTIs, it is highly likely that the patient is having a repeat UTI. With pain in lower back and diabetes, the UTI is complicated with possible pyelonephritis. Assessment 03/06/2021 Sarah Beth Friedman is a 40-year-old female currently admitted for continued treatment for sepsis secondary to urinary tract infection. She initially was seen on 03/05/2021 in the [place] [facility] and was transferred later that day to [facility] for care. Labs obtained today showed the following: WBC of 19.36 (down from 28.72), Hgb 9.8, Platelets 353, Sodium 131, Potassium 4.1, Chloride 100, Carbon Dioxide 20, BUN 24, Creatinine 1.2, Anion Gap 15.1, CRP 27.3, Albumin 2.0 (down from 2.8), and procalcitonin 39.93. Tmax was 101.7 and most recent Temperature was 98.1F, Respirations 24, Pulse 90-110s. Considering clinical features (continued lower back pain, nausea, fever, tachycardia, tachypnea) elevated lab results (WBC, procalcitonin, CRP), and high risk (past history of diabetes mellitus type 2), patient will benefit from continued antibiotic therapy. She has been monitored regularly for her diabetes and glucose levels. Glucose has been recorded between 246-282. Due to her recent fall, X-rays were ordered and showed the following findings: 1. Greater tuberosity fracture showing approximately 3.5 mm of displacement 2. Probable mild chronic calcific tendinitis. Referral to orthopedics will be required. Assessment 03/07/2021 Sarah Beth Friedman is a 40-year-old female currently admitted for continued treatment of sepsis secondary to urinary tract infection. Her condition has steadily improved on her current antibiotic therapy. Labs obtained today showed the following: WBC 14.04 (down from 19.36), Hgb 9.2, Platelets 335, Sodium 131, Potassium 3.9, Chloride 101, Carbon Dioxide 19, BUN 17, Creatinine 1.0. Tmax today was 100.8F and most recent temperature was 99.8F, Respirations 18, Pulse 112. Clinical features of sepsis are still present including, tachycardia, fever, and leukocytosis. Leukocytosis has been steadily improving over the last few days. Temperature is slowly coming down. Tachypnea has resolved. Other signs of urinary tract infection (e.g. CVA tenderness, suprapubic tenderness) have resolved. Due to tachycardia, fever, and leukocytosis continued antibiotic therapy would likely be of benefit. Glucose has been monitored regularly for her diabetes. Glucose has been recorded between 149-318. Kidney function based on BUN and creatinine has improved, likely due to improvement of infection and insulin management. Orthopedics has seen patient for recent left shoulder injury. Further treatment and work-up dependent on recommendation. 03/08/2021 Patient is doing well from her infection standpoint. White count and CRP continue to decrease. She has been afebrile for approximately 48 hours. Blood cultures are pending. We should be getting sensitivities tomorrow morning. Urine cultures were not done in the emergency department. Recommendations from orthopedic surgery is to treat the fracture conservatively with a left shoulder immobilizer and Polar Care. She will follow up next week with orthopedics. - Plan Plan:: Sepsis secondary to UTI: * Daily labs (CBC, BMP,) * Ceftriaxone 2g [id number] * Awaiting blood cultures for sensitivities. Should be back tomorrow morning and discharge at that time. * Enoxaparin 40mg/day * Ondansetron 4mg IV Q6H prn for nausea * Acetaminophen 650mg p.o Q4H for mild (1-3) pain * [place] 325-5mg p.o Q4H for moderate (4-6) pain * Repeat Blood Culture Diabetes Mellitus, Type 2: Diabetic Nephropathy: * Continue sliding scale insulin with fingerstick blood sugars 4 times daily * Insulin Lispro 10 units at meal time * Insulin Glargine 30 units BID * Adjust as needed * Hold Losartan (home medication) * Daily monitoring of kidney function (CMP) * Blood sugars improved Stented Coronary Arteries: * No acute concerns based on physical exam and EKG * Continue * Ticagrelor 90mg daily * Amlodipine 5mg daily Depression: * No acute concerns * Continue home sertraline Hypothyroidism: * No acute concerns * TSH measured 4.584 * Continue home levothyroxine Greater Tuberosity Fracture of Humerus, Left: * Treat conservatively * Shoulder immobilizer and Polar Care * Follow-up with orthopedics next week Code Status: Full Code DVT Prophylaxis: Lovenox Disposition: Discharge in the morning
[2021-03-08] MEDS: cefTRIAXone 2 GM in Sodium Chloride 0.9% 100 ML IV SCH (21:01)
[2021-03-09] MEDS: Acetaminophen 325 MG Tab PO PRN (00:40)
[2021-03-09] MEDS: Acetaminophen/HYDROcodone 325-5 MG Tab PO PRN ×3 (04:16→18:39)
[2021-03-09] MEDS: Levothyroxine 100 MCG Tab PO SCH ×2 (04:17→07:32)
[2021-03-09] MEDS: Insulin Lispro 100 UNIT/ML 10 ML Vial SUBCUT SCH ×5 (07:38→21:01)
[2021-03-09] MEDS: amLODIPine 2.5 MG Tab PO SCH (09:04)
[2021-03-09] MEDS: Chlorthalidone 25 MG Tab PO SCH (09:05)
[2021-03-09] MEDS: Ticagrelor 90 MG Tab PO SCH ×2 (09:05→20:57)
[2021-03-09] MEDS: Rosuvastatin 10 MG Tab PO SCH (09:05)
[2021-03-09] MEDS: Enoxaparin 40 MG/0.4 ML Syringe SUBCUT SCH (09:05)
[2021-03-09] MEDS: Metoprolol Tartrate 25 MG Tab PO SCH ×2 (09:06→20:57)
[2021-03-09] MEDS: Sertraline 50 MG Tab PO SCH (09:06)
[2021-03-09] MEDS: Insulin Glarg,Human.Rec.Analog 100 Unit/ML SUBCUT SCH ×2 (09:06→21:01)
--- NOTE | 2021-03-09 14:43 | PCM.PN ---
- General Info Date of Service: 03/09/21 Admission Dx/Problem (Free Text): Admission Diagnosis/Problem Admission Diagnosis/Problem Sepsis Subjective Update: Patient still has left arm pain from her fracture and is otherwise feeling better. Denies fever, chills, nausea or vomiting. She has been afebrile since March 07 afternoon. White blood cells of 14.07 today Her blood culture on March 05 was positive for E. coli, sensitive to ceftriaxone and Cipro Urine culture was not ordered. Urine culture was ordered today. - Review of Systems Systems Review Comment:: Positive for left arm pain. All other systems were reviewed and negative. - Patient Data Vitals - Most Recent: Last Vital Signs Temp 37.1 C 03/09/21 11:34 Pulse 89 03/09/21 11:34 Resp 18 03/09/21 11:34 BP 128/74 03/09/21 11:34 Pulse Ox 91 L 03/09/21 11:34 Weight - Most Recent: 119.023 kg I&O - Last 24 Hours: Intake & Output 03/08/21 03/09/21 03/09/21 22:59 06:59 14:59 Intake Total 2410 220 Output Total 450 2100 Balance 1960 -1880 Lab Results Last 24 Hours: Laboratory Results - last 24 hr 03/08/21 03/08/21 03/09/21 Range/Units 16:52 21:00 07:05 WBC 14.07 H (3.98-10.04) K/mm3 RBC 4.31 (3.98-5.22) M/mm3 Hgb 10.0 L (11.2-15.7) gm/dl Hct 32.3 L (34.1-44.9) % MCV 74.9 L (79.4-94.8) fl MCH 23.2 L (25.6-32.2) pg MCHC 31.0 L (32.2-35.5) g/dl RDW Std Deviation 51.0 H (36.4-46.3) fL Plt Count 382 H (182-369) K/mm3 MPV 9.8 (9.4-12.3) fl Neut % (Auto) 54.5 (34.0-71.1) % Lymph % (Auto) 27.5 (19.3-51.7) % [place] % (Auto) 13.0 H (4.7-12.5) % Eos % (Auto) 0.2 L (0.7-5.8) Baso % (Auto) 0.6 (0.1-1.2) % Neut # (Auto) 7.66 H (1.56-6.13) K/mm3 Lymph # (Auto) 3.87 H (1.18-3.74) K/mm3 [place] # (Auto) 1.83 H (0.24-0.36) K/mm3 Eos # (Auto) 0.03 L (0.04-0.36) K/mm3 Baso # (Auto) 0.09 H (0.01-0.08) K/mm3 Sodium (136-145) mEq/L Potassium (3.5-5.1) mEq/L Chloride (98-107) mEq/L Carbon Dioxide (21-32) mEq/L Anion Gap (5-15) BUN (7-18) mg/dL Creatinine (0.55-1.02) mg/dL Est Cr Clr Drug Dosing mL/min Estimated GFR (MDRD) (>60) mL/min BUN/Creatinine Ratio (14-18) Glucose (70-99) mg/dL POC Glucose 149 H 150 H (70-99) mg/dL Calcium (8.5-10.1) mg/dL 03/09/21 03/09/21 03/09/21 Range/Units 07:05 07:28 10:55 WBC (3.98-10.04) K/mm3 RBC (3.98-5.22) M/mm3 Hgb (11.2-15.7) gm/dl Hct (34.1-44.9) % MCV (79.4-94.8) fl MCH (25.6-32.2) pg MCHC (32.2-35.5) g/dl RDW Std Deviation (36.4-46.3) fL Plt Count (182-369) K/mm3 MPV (9.4-12.3) fl Neut % (Auto) (34.0-71.1) % Lymph % (Auto) (19.3-51.7) % [place] % (Auto) (4.7-12.5) % Eos % (Auto) (0.7-5.8) Baso % (Auto) (0.1-1.2) % Neut # (Auto) (1.56-6.13) K/mm3 Lymph # (Auto) (1.18-3.74) K/mm3 [place] # (Auto) (0.24-0.36) K/mm3 Eos # (Auto) (0.04-0.36) K/mm3 Baso # (Auto) (0.01-0.08) K/mm3 Sodium 137 (136-145) mEq/L Potassium 4.2 (3.5-5.1) mEq/L Chloride 102 (98-107) mEq/L Carbon Dioxide 28 (21-32) mEq/L Anion Gap 11.2 (5-15) BUN 13 (7-18) mg/dL Creatinine 0.9 (0.55-1.02) mg/dL Est Cr Clr Drug Dosing 64.40 mL/min Estimated GFR (MDRD) > 60 (>60) mL/min BUN/Creatinine Ratio 14.4 (14-18) Glucose 128 H (70-99) mg/dL POC Glucose 114 H 251 H (70-99) mg/dL Calcium 8.8 (8.5-10.1) mg/dL Bry Results Last 24 Hours: Microbiology 03/07/21 14:50 Blood Culture - Preliminary Blood - Venous - Lab Draw 03/07/21 14:35 Blood Culture - Preliminary Blood - Venous Med Orders - Current: Current Medications Acetaminophen (Acetaminophen 325 Mg Tab) 650 mg PO Q4H PRN PRN Reason: Pain (Mild 1-3)/fever Last Admin: 03/09/21 00:40 Dose: 650 mg Documented by: Hydrocodone Bitart/Acetaminophen (Acetaminophen/Hydrocodone 325-5 Mg Tab) 1 tab PO Q4H PRN PRN Reason: Pain (moderate 4-6) Last Admin: 03/09/21 09:17 Dose: 1 tab Documented by: Amlodipine Besylate (Amlodipine 2.5 Mg Tab) 7.5 mg PO DAILY PENDING SALE TO [facility] Last Admin: 03/09/21 09:04 Dose: 7.5 mg Documented by: Chlorthalidone (Chlorthalidone 25 Mg Tab) 25 mg PO DAILY PENDING SALE TO [facility] Last Admin: 03/09/21 09:05 Dose: 25 mg Documented by: Enoxaparin Sodium (Enoxaparin 40 Mg/0.4 Ml Syringe) 40 mg SUBCUT DAILY PENDING SALE TO [facility] Last Admin: 03/09/21 09:05 Dose: 40 mg Documented by: Ceftriaxone Sodium 2 gm/ (Sodium Chloride) 100 mls @ 200 mls/hr IV Q24H PENDING SALE TO [facility] Last Admin: 03/08/21 21:01 Dose: 200 mls/hr Documented by: Insulin Glargine (Insulin Glarg,Human.Rec.Analog 100 Unit/Ml) 30 unit SUBCUT BID PENDING SALE TO [facility] Last Admin: 03/09/21 09:06 Dose: 30 units Documented by: Insulin Human Lispro (Insulin Lispro 100 Unit/Ml 10 Ml Vial) 0 unit SUBCUT QIDACANDBED PENDING SALE TO [facility]; Protocol Last Admin: 03/09/21 12:42 Dose: 9 units Documented by: Levothyroxine Sodium (Levothyroxine 100 Mcg Tab) 100 mcg PO ACBREAKFAST PENDING SALE TO [facility] Last Admin: 03/09/21 07:32 Dose: Not Given Documented by: Metoprolol Tartrate (Metoprolol Tartrate 25 Mg Tab) 12.5 mg PO Q12H PENDING SALE TO [facility] Last Admin: 03/09/21 09:06 Dose: 12.5 mg Documented by: Ondansetron HCl (Ondansetron 4 Mg/2 Ml Sdv) 4 mg IV Q6H PRN PRN Reason: Nausea/Vomiting Last Admin: 03/08/21 17:07 Dose: 4 mg Documented by: Rosuvastatin Calcium (Rosuvastatin 10 Mg Tab) 20 mg PO DAILY PENDING SALE TO [facility] Last Admin: 03/09/21 09:05 Dose: 20 mg Documented by: Sertraline HCl (Sertraline 50 Mg Tab) 100 mg PO DAILY PENDING SALE TO [facility] Last Admin: 03/09/21 09:06 Dose: 100 mg Documented by: Temazepam (Temazepam 15 Mg Cap) 15 mg PO BEDTIME PRN PRN Reason: Sleep Last Admin: 03/09/21 00:40 Dose: 15 mg Documented by: Ticagrelor (Ticagrelor 90 Mg Tab) 90 mg PO BID PENDING SALE TO [facility] Last Admin: 03/09/21 09:05 Dose: 90 mg Documented by: Discontinued Medications Amlodipine Besylate (Amlodipine 5 Mg Tab) 5 mg PO DAILY PENDING SALE TO [facility] Last Admin: 03/08/21 08:04 Dose: 5 mg Documented by: Sodium Chloride (Normal Saline) 1,000 mls @ 125 mls/hr IV ASDIRECTED PENDING SALE TO [facility] Last Admin: 03/07/21 02:05 Dose: 125 mls/hr Documented by: Sodium Chloride (Normal Saline) Confirm Administered Dose 1,000 mls @ as directed .ROUTE .STK-MED ONE Stop: 03/08/21 07:42 Last Admin: 03/08/21 09:07 Dose: Not Given Documented by: Influenza Virus Vaccine (Pharmacy To Dose - Influenza Vaccine) 1 each IM ONETIME ONE Stop: 03/05/21 17:19 Influenza Virus Vaccine (Flu Vacc [id number] 36mos Up/Pf 60 Mcg/0.5 Ml Syringe) 60 mcg IM .ONCE ONE Stop: 03/05/21 17:46 Last Admin: 03/05/21 22:30 Dose: Not Given Documented by: Insulin Human Lispro (Insulin Lispro 100 Unit/Ml 10 Ml Vial) 10 unit SUBCUT TIDAC PENDING SALE TO [facility] Last Admin: 03/09/21 08:17 Dose: Not Given Documented by: Magnesium Hydroxide (Magnesium Hydroxide 400 Mg/5 Ml Susp 30 Ml Cup) 30 ml PO ONETIME ONE Stop: 03/08/21 08:31 Last Admin: 03/08/21 09:03 Dose: 30 ml Documented by: - Exam Physical Findings Comments:: General: Alert, Oriented HEENT: Pupils Equal, Mucous Membr. Moist/[place] Neck: Supple Lungs: Clear to Auscultation, Normal Respiratory Effort Cardiovascular: Regular Rate, Regular Rhythm GI/Abdominal Exam: Normal Bowel Sounds, Soft, Non-Tender, No Distention Extremities: Normal Inspection, No Pedal Edema Skin: Warm, Dry, Intact Psy/Mental Status: Alert, Normal Affect, Normal Mood - Patient Data Lab Results Last 24 hrs: Laboratory Results - last 24 hr 03/08/21 03/08/21 03/09/21 Range/Units 16:52 21:00 07:05 WBC 14.07 H (3.98-10.04) K/mm3 RBC 4.31 (3.98-5.22) M/mm3 Hgb 10.0 L (11.2-15.7) gm/dl Hct 32.3 L (34.1-44.9) % MCV 74.9 L (79.4-94.8) fl MCH 23.2 L (25.6-32.2) pg MCHC 31.0 L (32.2-35.5) g/dl RDW Std Deviation 51.0 H (36.4-46.3) fL Plt Count 382 H (182-369) K/mm3 MPV 9.8 (9.4-12.3) fl Neut % (Auto) 54.5 (34.0-71.1) % Lymph % (Auto) 27.5 (19.3-51.7) % [place] % (Auto) 13.0 H (4.7-12.5) % Eos % (Auto) 0.2 L (0.7-5.8) Baso % (Auto) 0.6 (0.1-1.2) % Neut # (Auto) 7.66 H (1.56-6.13) K/mm3 Lymph # (Auto) 3.87 H (1.18-3.74) K/mm3 [place] # (Auto) 1.83 H (0.24-0.36) K/mm3 Eos # (Auto) 0.03 L (0.04-0.36) K/mm3 Baso # (Auto) 0.09 H (0.01-0.08) K/mm3 Sodium (136-145) mEq/L Potassium (3.5-5.1) mEq/L Chloride (98-107) mEq/L Carbon Dioxide (21-32) mEq/L Anion Gap (5-15) BUN (7-18) mg/dL Creatinine (0.55-1.02) mg/dL Est Cr Clr Drug Dosing mL/min Estimated GFR (MDRD) (>60) mL/min BUN/Creatinine Ratio (14-18) Glucose (70-99) mg/dL POC Glucose 149 H 150 H (70-99) mg/dL Calcium (8.5-10.1) mg/dL 03/09/21 03/09/21 03/09/21 Range/Units 07:05 07:28 10:55 WBC (3.98-10.04) K/mm3 RBC (3.98-5.22) M/mm3 Hgb (11.2-15.7) gm/dl Hct (34.1-44.9) % MCV (79.4-94.8) fl MCH (25.6-32.2) pg MCHC (32.2-35.5) g/dl RDW Std Deviation (36.4-46.3) fL Plt Count (182-369) K/mm3 MPV (9.4-12.3) fl Neut % (Auto) (34.0-71.1) % Lymph % (Auto) (19.3-51.7) % [place] % (Auto) (4.7-12.5) % Eos % (Auto) (0.7-5.8) Baso % (Auto) (0.1-1.2) % Neut # (Auto) (1.56-6.13) K/mm3 Lymph # (Auto) (1.18-3.74) K/mm3 [place] # (Auto) (0.24-0.36) K/mm3 Eos # (Auto) (0.04-0.36) K/mm3 Baso # (Auto) (0.01-0.08) K/mm3 Sodium 137 (136-145) mEq/L Potassium 4.2 (3.5-5.1) mEq/L Chloride 102 (98-107) mEq/L Carbon Dioxide 28 (21-32) mEq/L Anion Gap 11.2 (5-15) BUN 13 (7-18) mg/dL Creatinine 0.9 (0.55-1.02) mg/dL Est Cr Clr Drug Dosing 64.40 mL/min Estimated GFR (MDRD) > 60 (>60) mL/min BUN/Creatinine Ratio 14.4 (14-18) Glucose 128 H (70-99) mg/dL POC Glucose 114 H 251 H (70-99) mg/dL Calcium 8.8 (8.5-10.1) mg/dL Result Diagrams: 03/09/21 07:05 03/09/21 07:05 Bry Results Last 24 hrs: Microbiology 03/07/21 14:50 Blood Culture - Preliminary Blood - Venous - Lab Draw 03/07/21 14:35 Blood Culture - Preliminary Blood - Venous Sepsis Event Note - Evaluation Sepsis Screening Result: No Definite Risk - Focused Exam Vital Signs: Vital Signs Temp Pulse Resp BP Pulse Ox 03/09/21 11:34 37.1 C 89 18 128/74 91 L 03/09/21 09:06 105 H 128/69 03/09/21 09:04 128/69 03/09/21 08:40 36.6 C 105 H 15 128/69 93 L 03/09/21 04:11 36.7 C 95 22 H 156/91 H 91 L - Problem List Review Problem List Initiated/Reviewed/Updated: Yes - My Orders Last 24 Hours: My Active Orders 03/09/21 09:00 Chlorthalidone 25 mg PO DAILY Metoprolol Tartrate [Lopressor] 12.5 mg PO Q12H amLODIPine [Norvasc] 7.5 mg PO DAILY 03/09/21 10:03 CULTURE URINE [MREF] Urgent - Assessment Assessment:: Admission Assessment (03/05/2021): -Sarah Beth Friedman is a 40 year-old female who was transferred to the hospital on 03/05/2021for continued signs and symptoms of sepsis secondary to UTI for the past 2 days. -She has had chills, fatigue, malaise, nausea/vomiting, decreased appetite, suprapubic pain, and bilateral CVA tenderness suggestive of UTI. - Urinalysis obtained showed: * cloudy appearance * glucose 500mg/dL * Nitrite negative * leukocyte esterase positive/small * WBC 50-60/hpf * 2+ bacteria * RBC 3-6, moderate occult blood -Labs obtained in ED showing: * WBC at 28.72 and 4.76 * Hgb 10.6 * Platelets 393 * Sodium 134 * Potassium 4.5 * Chloride 98 * Carbon Dioxide 21.8 * BUN 27 * Creatinine 1.5 * Albumin 2.8 * SARS-CoV-2 RNA Negative * Glucose 291 -Chest X-ray showed: * enlarged cardiac silhouette and no infiltrate from clinical sepsis -EKG showed: * sinus tachycardia - She has a past medical history of Diabetes Mellitus which would increase her risk for urinary tract infection, especially if blood glucose levels are not tracked as patient reports. With clinical features of UTI, urinary analysis with suggestive features of UTI, and past history of recurrent UTIs, it is highly likely that the patient is having a repeat UTI. With pain in lower back and diabetes, the UTI is complicated with possible pyelonephritis. Assessment 03/06/2021 Sarah Beth Friedman is a 40-year-old female currently admitted for continued treatment for sepsis secondary to urinary tract infection. She initially was seen on 03/05/2021 in the [place] ER and was transferred later that day to [place] for care. Labs obtained today showed the following: WBC of 19.36 (down from 28.72), Hgb 9.8, Platelets 353, Sodium 131, Potassium 4.1, Chloride 100, Carbon Dioxide 20, BUN 24, Creatinine 1.2, Anion Gap 15.1, CRP 27.3, Albumin 2.0 (down from 2.8), and procalcitonin 39.93. Tmax was 101.7 and most recent Temperature was 98.1F, Respirations 24, Pulse 90-110s. Considering clinical features (continued lower back pain, nausea, fever, tachycardia, tachypnea) elevated lab results (WBC, procalcitonin, CRP), and high risk (past history of diabetes mellitus type 2), patient will benefit from continued antibiotic therapy. She has been monitored regularly for her diabetes and glucose levels. Glucose has been recorded between 246-282. Due to her recent fall, X-rays were ordered and showed the following findings: 1. Greater tuberosity fracture showing approximately 3.5 mm of displacement 2. Probable mild chronic calcific tendinitis. Referral to orthopedics will be required. Assessment 03/07/2021 Sarah Beth Friedman is a 40-year-old female currently admitted for continued treatment of sepsis secondary to urinary tract infection. Her condition has steadily improved on her current antibiotic therapy. Labs obtained today showed the following: WBC 14.04 (down from 19.36), Hgb 9.2, Platelets 335, Sodium 131, Potassium 3.9, Chloride 101, Carbon Dioxide 19, BUN 17, Creatinine 1.0. Tmax today was 100.8F and most recent temperature was 99.8F, Respirations 18, Pulse 112. Clinical features of sepsis are still present including, tachycardia, fever, and leukocytosis. Leukocytosis has been steadily improving over the last few days. Temperature is slowly coming down. Tachypnea has resolved. Other signs of urinary tract infection (e.g. CVA tenderness, suprapubic tenderness) have resolved. Due to tachycardia, fever, and leukocytosis continued antibiotic therapy would likely be of benefit. Glucose has been monitored regularly for her diabetes. Glucose has been recorded between 149-318. Kidney function based on BUN and creatinine has improved, likely due to improvement of infection and insulin management. Orthopedics has seen patient for recent left shoulder injury. Further treatment and work-up dependent on recommendation. 03/08/2021 Patient is doing well from her infection standpoint. White count and CRP continue to decrease. She has been afebrile for approximately 48 hours. Blood cultures are pending. We should be getting sensitivities tomorrow morning. Ur ine cultures were not done in the emergency department. Recommendations from orthopedic surgery is to treat the fracture conservatively with a left shoulder immobilizer and Polar Care. She will follow up next week with orthopedics. 03/09/2021 Patient still has left arm pain from her fracture and is otherwise feeling better. Denies fever, chills, nausea or vomiting. She has been afebrile since March 07 afternoon. White blood cells of 14.07 today Her blood culture on March 05 was positive for E. coli, sensitive to ceftriaxone and Cipro Urine culture was not ordered. Urine culture was ordered today. - Plan Plan:: Sepsis secondary to UTI: * Daily labs (CBC, BMP,) * Ceftriaxone 2g [id number] (since 03/05) * Blood culture on March 05 positive for E. coli, sensitive to ceftriaxone and Cipro * Enoxaparin 40mg/day * Ondansetron 4mg IV Q6H prn for nausea * Acetaminophen 650mg p.o Q4H for mild (1-3) pain * [place] 325-5mg p.o Q4H for moderate (4-6) pain * Repeat Blood Culture negative so far * Urine culture was not performed. Urine culture was ordered today Diabetes Mellitus, Type 2: Diabetic Nephropathy: * Continue sliding scale insulin with fingerstick blood sugars 4 times daily * Insulin Lispro 10 units at meal time * Insulin Glargine 30 units BID * Adjust as needed * Hold Losartan (home medication) * Daily monitoring of kidney function (CMP) * Blood sugars improved Stented Coronary Arteries: * No acute concerns based on physical exam and EKG * Continue * Ticagrelor 90mg daily * Amlodipine 7.5mg daily (blood pressure is not well controlled. Increased amlodipine to 7.5 mg from 5 mg daily) Depression: * No acute concerns * Continue home sertraline Hypothyroidism: * No acute concerns * TSH measured 4.584 * Continue home levothyroxine Greater Tuberosity Fracture of Humerus, Left: * Treat conservatively * Shoulder immobilizer and Polar Care * Follow-up with orthopedics next week Code Status: Full Code DVT Prophylaxis: Lovenox Disposition: We will possibly discharge him tomorrow Follow with the PCP, orthopedist, and cardiology
[2021-03-09] MEDS: cefTRIAXone 2 GM in Sodium Chloride 0.9% 100 ML IV SCH (20:57)
[2021-03-10] MEDS: Acetaminophen/HYDROcodone 325-5 MG Tab PO PRN ×4 (00:09→13:58)
[2021-03-10] MEDS: Levothyroxine 100 MCG Tab PO SCH (06:14)
[2021-03-10] MEDS: Enoxaparin 40 MG/0.4 ML Syringe SUBCUT SCH (08:18)
[2021-03-10] MEDS: Insulin Lispro 100 UNIT/ML 10 ML Vial SUBCUT SCH ×3 (08:18→18:21)
[2021-03-10] MEDS: Chlorthalidone 25 MG Tab PO SCH (08:19)
[2021-03-10] MEDS: Insulin Glarg,Human.Rec.Analog 100 Unit/ML SUBCUT SCH ×2 (08:19→16:10)
[2021-03-10] MEDS: amLODIPine 2.5 MG Tab PO SCH (08:19)
[2021-03-10] MEDS: Sertraline 50 MG Tab PO SCH (08:19)
[2021-03-10] MEDS: Ticagrelor 90 MG Tab PO SCH (08:19)
[2021-03-10] MEDS: Rosuvastatin 10 MG Tab PO SCH (08:19)
[2021-03-10] MEDS: Metoprolol Tartrate 25 MG Tab PO SCH ×2 (08:20→16:06)
[2021-03-10] MEDS ORDERED: Phosphorus #1 250 MG Tab PO SCH (12:45)
--- NOTE | 2021-03-10 13:14 | PCM.DCSUM1 ---
Discharge Summary - Hospital Course Free Text/Narrative:: Admission Assessment (03/05/2021): -Sarah Beth Friedman is a 40 year-old female who was transferred to the hospital on 03/05/2021for continued signs and symptoms of sepsis secondary to UTI for the past 2 days. -She has had chills, fatigue, malaise, nausea/vomiting, decreased appetite, suprapubic pain, and bilateral CVA tenderness suggestive of UTI. - Urinalysis obtained showed: * cloudy appearance * glucose 500mg/dL * Nitrite negative * leukocyte esterase positive/small * WBC 50-60/hpf * 2+ bacteria * RBC 3-6, moderate occult blood -Labs obtained in ED showing: * WBC at 28.72 and 4.76 * Hgb 10.6 * Platelets 393 * Sodium 134 * Potassium 4.5 * Chloride 98 * Carbon Dioxide 21.8 * BUN 27 * Creatinine 1.5 * Albumin 2.8 * SARS-CoV-2 RNA Negative * Glucose 291 -Chest X-ray showed: * enlarged cardiac silhouette and no infiltrate from clinical sepsis -EKG showed: * sinus tachycardia - She has a past medical history of Diabetes Mellitus which would increase her risk for urinary tract infection, especially if blood glucose levels are not tracked as patient reports. With clinical features of UTI, urinary analysis with suggestive features of UTI, and past history of recurrent UTIs, it is highly likely that the patient is having a repeat UTI. With pain in lower back and diabetes, the UTI is complicated with possible pyelonephritis. Assessment 03/06/2021 Sarah Beth Friedman is a 40-year-old female currently admitted for continued treatment for sepsis secondary to urinary tract infection. She initially was seen on 03/05/2021 in the [facility] and was transferred later that day to [place] for care. Labs obtained today showed the following: WBC of 19.36 (down from 28.72), Hgb 9.8, Platelets 353, Sodium 131, Potassium 4.1, Chloride 100, Carbon Dioxide 20, BUN 24, Creatinine 1.2, Anion Gap 15.1, CRP 27.3, Albumin 2.0 (down from 2.8), and procalcitonin 39.93. Tmax was 101.7 and most recent Temperature was 98.1F, Respirations 24, Pulse 90-110s. Considering clinical features (continued lower back pain, nausea, fever, tachycardia, tachypnea) elevated lab results (WBC, procalcitonin, CRP), and high risk (past history of diabetes mellitus type 2), patient will benefit from continued antibiotic therapy. She has been monitored regularly for her diabetes and glucose levels. Glucose has been recorded between 246-282. Due to her recent fall, X-rays were ordered and showed the following findings: 1. Greater tuberosity fracture showing approximately 3.5 mm of displacement 2. Probable mild chronic calcific tendinitis. Referral to orthopedics will be required. Assessment 03/07/2021 Sarah Beth Friedman is a 40-year-old female currently admitted for continued treatment of sepsis secondary to urinary tract infection. Her condition has steadily improved on her current antibiotic therapy. Labs obtained today showed the following: WBC 14.04 (down from 19.36), Hgb 9.2, Platelets 335, Sodium 131, Potassium 3.9, Chloride 101, Carbon Dioxide 19, BUN 17, Creatinine 1.0. Tmax today was 100.8F and most recent temperature was 99.8F, Respirations 18, Pulse 112. Clinical features of sepsis are still present including, tachycardia, fever, and leukocytosis. Leukocytosis has been steadily improving over the last few days. Temperature is slowly coming down. Tachypnea has resolved. Other signs of urinary tract infection (e.g. CVA tenderness, suprapubic tenderness) have resolved. Due to tachycardia, fever, and leukocytosis continued antibiotic therapy would likely be of benefit. Glucose has been monitored regularly for her diabetes. Glucose has been recorded between 149-318. Kidney function based on BUN and creatinine has improved, likely due to improvement of infection and insulin management. Orthopedics has seen patient for recent left shoulder injury. Further treatment and work-up dependent on recommendation. 03/08/2021 Patient is doing well from her infection standpoint. White count and CRP continue to decrease. She has been afebrile for approximately 48 hours. Blood cultures are pending. We should be getting sensitivities tomorrow morning. Urine cultures were not done in the emergency department. Recommendations from orthopedic surgery is to treat the fracture conservatively with a left shoulder immobilizer and Polar Care. She will follow up next week with orthopedics. 03/09/2021 Patient still has left arm pain from her fracture and is otherwise feeling better. Denies fever, chills, nausea or vomiting. She has been afebrile since March 07 afternoon. White blood cells of 14.07 today Her blood culture on March 05 was positive for E. coli, sensitive to ceftriaxone and Cipro Urine culture was not ordered. Urine culture was ordered today. 03/10/2021 Patient still has left arm pain from her fracture which is controlled. She is otherwise feeling fine. Denies fever, chills, nausea or vomiting. Vital signs are stable and acceptable. Patient has been afebrile over the past 48 hours. While blood cells 16.020 today which was 19.36 on admission. Her blood culture on March 05 was positive for E. coli, sensitive to ceftriaxone and Cipro. [facility] also reported the same result today. But urine culture was not sent on admission and in [facility]. Urine culture was ordered and send it yesterday, results pending. Patient has been treated with ceftriaxone in the hospital. - Plan Plan:: Sepsis secondary to UTI: * Daily labs (CBC, BMP,) * Blood culture on March 05 positive for E. coli, sensitive to ceftriaxone and Cipro * Will discontinue ceftriaxone 2g [id number] (since 03/05) today and discharge her on Cipro (as a poor sensitivity, the E. coli is resistant to cefazolin). * Enoxaparin 40mg/day * Ondansetron 4mg IV Q6H prn for nausea * Acetaminophen 650mg p.o Q4H for mild (1-3) pain * [place] 325-5mg p.o Q4H for moderate (4-6) pain * Repeat Blood Culture negative so far * Urine culture was not performed. Urine culture was ordered yesterday Diabetes Mellitus, Type 2: Diabetic Nephropathy: * Continue sliding scale insulin with fingerstick blood sugars 4 times daily * Insulin Glargine 30 units BID * Adjust as needed * Will resume losartan (home medication) * Daily monitoring of kidney function (CMP) * Blood sugars improved Stented Coronary Arteries: * No acute concerns based on physical exam and EKG * Continue * Ticagrelor 90mg daily * Resumed amlodipine 5mg daily. I increased amlodipine to 70.5 mg daily but I will resume home medication losartan and spironolactone. So I will decrease amlodipine back to 5 mg daily Depression: * No acute concerns * Continue home sertraline Hypothyroidism: * No acute concerns * TSH measured 4.584 * Continue home levothyroxine Greater Tuberosity Fracture of Humerus, Left: * As per orthopedics treat conservatively * Shoulder immobilizer and Polar Care * Follow-up with orthopedics next week Patient still has left arm pain from her fracture which is controlled. She is otherwise feeling fine. Denies fever, chills, nausea or vomiting. Vital signs are stable and acceptable. Patient has been afebrile over the past 48 hours. While blood cells 16.020 today which was 19.36 on admission. Her blood culture on March 05 was positive for E. coli, sensitive to ceftriaxone and Cipro. [facility] also reported the same result today. Repeat blood culture no growth But urine culture was not sent on admission and in [facility]. Urine culture was ordered and send it yesterday, results pending. Patient has been treated with IV ceftriaxone in the hospital. We will discharge this patient on Cipro for 10 days (sensitivity showed resistance to ceftazolin). PT OT and CM okay to home. Patient will be discharged home today to follow with PCP in 3 days, orthopedics in 1 week and soda maker within 1 week. Repeat a CBC, CMP, magnesium and Phos (phos was given in hospital. She will be discharged on phos) in 3 days. Check blood sugar 4 times a day and adjust insulin based on sugar levels. Do not drive until approval from MD. Please return to the ER or call PCP if you do not feel well. Call PCP for medical issues. Diagnosis: Stroke: No - Discharge Data Discharge Date: 03/10/21 Discharge Disposition: Home, Self-Care 01 Condition: Stable - Referral to Home Health Primary Care Physician: PCP Unknown - Patient Summary/Data Consults: Consultations 03/06/21 14:07 Consult to Physician [CONS] Routine 03/07/21 07:27 PT Evaluation and Treatment [CONS] Routine 03/07/21 07:28 OT Evaluation and Treatment [CONS] Routine Labs Pending at D/C: Urine culture Recommended Follow-up Testing/Procedures: follow with PCP in 3 days, orthopedics in 1 week and soda maker within 1 week. Repeat a CBC, CMP, magnesium and Phos (phos was given in hospital. She will be discharged on phos) in 3 days. Check blood sugar 4 times a day and adjust insulin based on sugar levels. Do not drive until approval from MD. Please return to the ER or call PCP if you do not feel well. Call PCP for medical issues. - Patient Instructions Diet: Diabetic Diet Activity: As Tolerated Driving: Do Not Drive - Discharge Plan *PRESCRIPTION DRUG MONITORING PROGRAM REVIEWED*: Not Applicable *COPY OF PRESCRIPTION DRUG MONITORING REPORT IN PATIENT ANDREI: Not Applicable Prescriptions/Med Rec: Ciprofloxacin [Cipro XR] 500 mg PO BID #20 tab.er Insulin Lispro [Humalog] See Protocol SUBCUT QIDACANDBED #10 ml Insulin Glarg,Human.Rec.Analog [Lantus] 30 unit SUBCUT BID #10 ml Metoprolol Tartrate [Lopressor] 12.5 mg PO Q12H #15 tablet Phosphorus #1 [Neutra-Phos] 250 mg PO BID #4 tablet Home Medications: Home Meds Levothyroxine 100 mcg PO ACBREAKFAST 08/18/20 [History] Sertraline HCl [Zoloft] 100 mg PO DAILY 08/18/20 [History] Chlorthalidone 25 mg PO DAILY 03/04/21 [History] Losartan Potassium 100 mg PO 1700 03/04/21 [History] Spironolactone [Aldactone] 25 mg PO BID 03/04/21 [History] Ticagrelor [Brilinta] 90 mg PO BID 03/04/21 [History] amLODIPine [Norvasc] 5 mg PO DAILY 03/04/21 [History] Rosuvastatin Calcium 20 mg PO DAILY 03/05/21 [History] Ciprofloxacin [Cipro XR] 500 mg PO BID #20 tab.er 03/10/21 [Rx] Insulin Glarg,Human.Rec.Analog [Lantus] 30 unit SUBCUT BID #10 ml 03/10/21 [Rx] Insulin Lispro [Humalog] See Protocol SUBCUT QIDACANDBED #10 ml 03/10/21 [Rx] Metoprolol Tartrate [Lopressor] 12.5 mg PO Q12H #15 tablet 03/10/21 [Rx] Phosphorus #1 [Neutra-Phos] 250 mg PO BID #4 tablet 03/10/21 [Rx] Patient Handouts: Urinary Tract Infection, Adult, Urosepsis, Adult, How to Use a Shoulder Immobilizer, Sepsis, Self Care, Adult Referrals: to see, pcp or walk in clinic in 3 days [Other] see, orthopedics in 1 week [Other] Imelda Lai MD [Resident] - 03/13/21 1:30 pm (Please arrive 30 minutes before the appointment time, bring insurance cards and photo ID and wear a mask, you may bring 1 support person with you.) see, cardiology within one week. [Other] - Discharge Summary/Plan Comment DC Time >30 min.: Yes Total # of Minutes for Discharge Time: > 30min - General Info Date of Service: 03/10/21 Admission Dx/Problem (Free Text: UTI, bacteremia Subjective Update: Patient still has left arm pain from her fracture and is otherwise feeling better. Denies fever, chills, nausea or vomiting. She has been afebrile since March 07 afternoon. Her blood culture on March 05 was positive for E. coli, sensitive to ceftriaxone and Cipro Urine culture was not ordered. Urine culture was ordered yesterday. - Review of Systems Systems Review Comment: Positive for left arm pain. All other systems were reviewed and negative. - Patient Data Vitals - Most Recent: Last Vital Signs Temp 36.5 C 03/10/21 07:54 Pulse 76 03/10/21 08:20 Resp 16 03/10/21 07:54 BP 116/65 03/10/21 08:20 Pulse Ox 91 L 03/10/21 07:54 Weight - Most Recent: 117.889 kg I&O - Last 24 hours: Intake & Output 03/09/21 03/10/21 03/10/21 22:59 06:59 14:59 Intake Total 670 500 175 Output Total 800 1500 Balance -130 -1000 175 Lab Results - Last 24 hrs: Laboratory Results - last 24 hr 03/09/21 03/09/21 03/10/21 Range/Units 17:01 20:43 06:16 WBC (3.98-10.04) K/mm3 RBC (3.98-5.22) M/mm3 Hgb (11.2-15.7) gm/dl Hct (34.1-44.9) % MCV (79.4-94.8) fl MCH (25.6-32.2) pg MCHC (32.2-35.5) g/dl RDW Std Deviation (36.4-46.3) fL Plt Count (182-369) K/mm3 MPV (9.4-12.3) fl Neut % (Auto) (34.0-71.1) % Lymph % (Auto) (19.3-51.7) % [place] % (Auto) (4.7-12.5) % Eos % (Auto) (0.7-5.8) Baso % (Auto) (0.1-1.2) % Neut # (Auto) (1.56-6.13) K/mm3 Lymph # (Auto) (1.18-3.74) K/mm3 [place] # (Auto) (0.24-0.36) K/mm3 Eos # (Auto) (0.04-0.36) K/mm3 Baso # (Auto) (0.01-0.08) K/mm3 Sodium (136-145) mEq/L Potassium (3.5-5.1) mEq/L Chloride (98-107) mEq/L Carbon Dioxide (21-32) mEq/L Anion Gap (5-15) BUN (7-18) mg/dL Creatinine (0.55-1.02) mg/dL Est Cr Clr Drug Dosing mL/min Estimated GFR (MDRD) (>60) mL/min BUN/Creatinine Ratio (14-18) Glucose (70-99) mg/dL POC Glucose 249 H 236 H 184 H (70-99) mg/dL Calcium (8.5-10.1) mg/dL Total Bilirubin (0.2-1.0) mg/dL AST (15-37) U/L ALT (14-59) U/L Alkaline Phosphatase (46-116) U/L Total Protein (6.4-8.2) g/dl Albumin (3.4-5.0) g/dl Globulin gm/dL Albumin/Globulin Ratio (1-2) 03/10/21 03/10/21 03/10/21 Range/Units 09:07 09:07 11:18 WBC 16.02 H (3.98-10.04) K/mm3 RBC 4.57 (3.98-5.22) M/mm3 Hgb 10.7 L (11.2-15.7) gm/dl Hct 34.1 (34.1-44.9) % MCV 74.6 L (79.4-94.8) fl MCH 23.4 L (25.6-32.2) pg MCHC 31.4 L (32.2-35.5) g/dl RDW Std Deviation 50.0 H (36.4-46.3) fL Plt Count 475 H D (182-369) K/mm3 MPV 9.7 (9.4-12.3) fl Neut % (Auto) 58.2 (34.0-71.1) % Lymph % (Auto) 27.5 (19.3-51.7) % [place] % (Auto) 7.3 (4.7-12.5) % Eos % (Auto) 0.2 L (0.7-5.8) Baso % (Auto) 1.1 (0.1-1.2) % Neut # (Auto) 9.31 H (1.56-6.13) K/mm3 Lymph # (Auto) 4.41 H (1.18-3.74) K/mm3 [place] # (Auto) 1.17 H (0.24-0.36) K/mm3 Eos # (Auto) 0.04 (0.04-0.36) K/mm3 Baso # (Auto) 0.17 H (0.01-0.08) K/mm3 Sodium 136 (136-145) mEq/L Potassium 4.1 (3.5-5.1) mEq/L Chloride 99 (98-107) mEq/L Carbon Dioxide 26 (21-32) mEq/L Anion Gap 15.1 H (5-15) BUN 19 H (7-18) mg/dL Creatinine 0.9 (0.55-1.02) mg/dL Est Cr Clr Drug Dosing 64.40 mL/min Estimated GFR (MDRD) > 60 (>60) mL/min BUN/Creatinine Ratio 21.1 H (14-18) Glucose 202 H (70-99) mg/dL POC Glucose 261 H (70-99) mg/dL Calcium 9.0 (8.5-10.1) mg/dL Total Bilirubin 0.2 (0.2-1.0) mg/dL AST 21 (15-37) U/L ALT 16 (14-59) U/L Alkaline Phosphatase 190 H (46-116) U/L Total Protein 7.7 (6.4-8.2) g/dl Albumin 2.5 L (3.4-5.0) g/dl Globulin 5.2 gm/dL Albumin/Globulin Ratio 0.5 L (1-2) MARIAH Results - Last 24 hrs: Microbiology 03/07/21 14:50 Blood Culture - Preliminary Blood - Venous - Lab Draw 03/07/21 14:35 Blood Culture - Preliminary Blood - Venous Med Orders - Current: Current Medications Acetaminophen (Acetaminophen 325 Mg Tab) 650 mg PO Q4H PRN PRN Reason: Pain (Mild 1-3)/fever Last Admin: 03/09/21 00:40 Dose: 650 mg Documented by: Hydrocodone Bitart/Acetaminophen (Acetaminophen/Hydrocodone 325-5 Mg Tab) 1 tab PO Q4H PRN PRN Reason: Pain (moderate 4-6) Last Admin: 03/10/21 09:34 Dose: 1 tab Documented by: Amlodipine Besylate (Amlodipine 2.5 Mg Tab) 7.5 mg PO DAILY [facility] Last Admin: 03/10/21 08:19 Dose: 7.5 mg Documented by: Chlorthalidone (Chlorthalidone 25 Mg Tab) 25 mg PO DAILY [facility] Last Admin: 03/10/21 08:19 Dose: 25 mg Documented by: Enoxaparin Sodium (Enoxaparin 40 Mg/0.4 Ml Syringe) 40 mg SUBCUT DAILY [facility] Last Admin: 03/10/21 08:18 Dose: 40 mg Documented by: Ceftriaxone Sodium 2 gm/ (Sodium Chloride) 100 mls @ 200 mls/hr IV Q24H [facility] Last Admin: 03/09/21 20:57 Dose: 200 mls/hr Documented by: Insulin Glargine (Insulin Glarg,Human.Rec.Analog 100 Unit/Ml) 30 unit SUBCUT BID [facility] Last Admin: 03/10/21 08:19 Dose: 30 units Documented by: Insulin Human Lispro (Insulin Lispro 100 Unit/Ml 10 Ml Vial) 0 unit SUBCUT QIDACANDBED [facility]; Protocol Last Admin: 03/10/21 12:34 Dose: 9 units Documented by: Levothyroxine Sodium (Levothyroxine 100 Mcg Tab) 100 mcg PO ACBREAKFAST [facility] Last Admin: 03/10/21 06:14 Dose: 100 mcg Documented by: Metoprolol Tartrate (Metoprolol Tartrate 25 Mg Tab) 12.5 mg PO Q12H [facility] Last Admin: 03/10/21 08:20 Dose: 12.5 mg Documented by: Ondansetron HCl (Ondansetron 4 Mg/2 Ml Sdv) 4 mg IV Q6H PRN PRN Reason: Nausea/Vomiting Last Admin: 03/08/21 17:07 Dose: 4 mg Documented by: Rosuvastatin Calcium (Rosuvastatin 10 Mg Tab) 20 mg PO DAILY [facility] Last Admin: 03/10/21 08:19 Dose: 20 mg Documented by: Sertraline HCl (Sertraline 50 Mg Tab) 100 mg PO DAILY [facility] Last Admin: 03/10/21 08:19 Dose: 100 mg Documented by: Sodium Phosphate (Phosphorus #1 250 Mg Tab) 250 mg PO BID [facility] Stop: 03/11/21 21:01 Temazepam (Temazepam 15 Mg Cap) 15 mg PO BEDTIME PRN PRN Reason: Sleep Last Admin: 03/09/21 00:40 Dose: 15 mg Documented by: Ticagrelor (Ticagrelor 90 Mg Tab) 90 mg PO BID [facility] Last Admin: 03/10/21 08:19 Dose: 90 mg Documented by: Discontinued Medications Amlodipine Besylate (Amlodipine 5 Mg Tab) 5 mg PO DAILY [facility] Last Admin: 03/08/21 08:04 Dose: 5 mg Documented by: Sodium Chloride (Normal Saline) 1,000 mls @ 125 mls/hr IV ASDIRECTED [facility] Last Admin: 03/07/21 02:05 Dose: 125 mls/hr Documented by: Sodium Chloride (Normal Saline) Confirm Administered Dose 1,000 mls @ as directed .ROUTE .STK-MED ONE Stop: 03/08/21 07:42 Last Admin: 03/08/21 09:07 Dose: Not Given Documented by: Influenza Virus Vaccine (Pharmacy To Dose - Influenza Vaccine) 1 each IM ONETIME ONE Stop: 03/05/21 17:19 Influenza Virus Vaccine (Flu Vacc [id number] 36mos Up/Pf 60 Mcg/0.5 Ml Syringe) 60 mcg IM .ONCE ONE Stop: 03/05/21 17:46 Last Admin: 03/05/21 22:30 Dose: Not Given Documented by: Insulin Human Lispro (Insulin Lispro 100 Unit/Ml 10 Ml Vial) 10 unit SUBCUT TIDAC [facility] Last Admin: 03/09/21 08:17 Dose: Not Given Documented by: Magnesium Hydroxide (Magnesium Hydroxide 400 Mg/5 Ml Susp 30 Ml Cup) 30 ml PO ONETIME ONE Stop: 03/08/21 08:31 Last Admin: 03/08/21 09:03 Dose: 30 ml Documented by: - Exam Physical Findings Comments:: General: Alert, Oriented HEENT: Pupils Equal, Mucous Membr. Moist/[place] Neck: Supple Lungs: Clear to Auscultation, Normal Respiratory Effort Cardiovascular: Regular Rate, Regular Rhythm GI/Abdominal Exam: Normal Bowel Sounds, Soft, Non-Tender, No Distention Extremities: Normal Inspection, No Pedal Edema Skin: Warm, Dry, Intact Psy/Mental Status: Alert, Normal Affect, Normal Mood *Q Meaningful Use (DIS) - VTE *Q VTE Mechanical Contraindications *Q: At Risk for Falls
[2021-03-10] MEDS: cefTRIAXone 2 GM in Sodium Chloride 0.9% 100 ML IV SCH (15:25)
[2021-03-10 15:32] VITALS: BP 125/51; PULSE 83
== END 2021-03-10 16:17 | disposition home or self-care (01) | DRG 720 ==
LOC: JD.MS 15:42
PROVIDERS: ADMIT Family Medicine; ATTEND Family Medicine
DX: A41.51 Sepsis due to Escherichia coli [E. coli] (principal); N12 Tubulo-interstitial nephritis, not specified as acute or chronic; Z20.822 Contact with and (suspected) exposure to COVID-19; E11.21 Type 2 diabetes mellitus with diabetic nephropathy; F32.A Depression, unspecified; E03.9 Hypothyroidism, unspecified; S42.252A Displaced fracture of greater tuberosity of left humerus, initial encounter for closed fracture; E78.00 Pure hypercholesterolemia, unspecified; E11.42 Type 2 diabetes mellitus with diabetic polyneuropathy; F43.10 Post-traumatic stress disorder, unspecified; Z88.6 Allergy status to analgesic agent; Z79.4 Long term (current) use of insulin; Z79.890 Hormone replacement therapy; Z79.899 Other long term (current) drug therapy; Z98.890 Other specified postprocedural states; Z87.891 Personal history of nicotine dependence; W19.XXXA Unspecified fall, initial encounter
CPT/HCPCS: 36415; 73030-26-LT; 73030-LT; 73200-26-LT; 73200-LT; 80048; 80053; 82947; 83036; 83735; 84100; 84145; 84443; 85025; 86140; 87040; 87086; 97162-GP; A9270-GY; J0696; J1650; J1815-GY; J2405; J7030